=== PATIENT | male | born 2000 | race Caucasian/White ===

== ENCOUNTER 2021-05-25 17:25 | Emergency (ER) | payer OTHER ==
[~2021-05-25] VITALS: Ht 172.7 cm; Wt 83.3 kg
[2021-05-25] MEDS ORDERED: ACET325T43 PO (17:36)
[2021-05-25] MEDS ORDERED: ASPI-1 PO (17:36)
--- NOTE | 2021-05-25 18:45 | REP ---
INDICATION: CP COMPARISON: None. TECHNIQUE: PA/Lateral FINDINGS: Lungs: Clear, no infiltrate. Heart: Normal in size. Mediastinum: Mediastinal silhouette unremarkable. Pleural angles: Unremarkable.. Bones and soft tissues: Unremarkable. IMPRESSION: No acute pulmonary disease. <Electronically signed by Troy Clay > 05/25/21 [id number]
[2021-05-25 19:04] LABS: BASO % 0.4 % (0.0-1.0); EOS # 0.2 10^3/uL (0.0-0.5); EOS % 2.1 % (0.0-3.0); HEMOGLOBIN 14.3 g/dl (13.5-17.5); LYMPH # 3.8 10^3/uL (1.5-5.0); LYMPH % 39.3 % (24.0-44.0); MEAN CORPUSCULAR HEMOGLOBIN 28.9 pg (27.0-33.0); MEAN CORPUSCULAR HGB CONC 33.3 g/dl (32.0-36.5); MEAN CORPUSCULAR VOLUME 86.9 fl (80.0-96.0); MONO # 0.8 10^3/uL (0.0-0.8); MONO % 8.7 % (2.0-8.0); NEUTROPHILS # 4.8 10^3/uL (1.5-8.5); NEUTROPHILS % 49.2 % (36.0-66.0); PLATELET COUNT, AUTOMATED 302 10^3/uL (150-450); RED BLOOD COUNT 4.95 10^6/uL (4.30-6.10); WHITE BLOOD COUNT 9.7 10^3/uL (4.0-10.0)
--- OUTSIDE RECORDS SUMMARY | 2021-05-25 19:14 | CCD ---
Author Author [facility] Organization [facility] Address Unknown Phone Unavailable Care Team Providers Care Cupola Tender Helper Name Role Phone Jameson, Munger ZINC FURNACE CHARGER Unavailable Unavailable Jameson, Munger ZINC FURNACE CHARGER Unavailable Unavailable Jameson, Munger ZINC FURNACE CHARGER Unavailable Unavailable Jameson, Munger ZINC FURNACE CHARGER Unavailable Unavailable Jameson, Munger ZINC FURNACE CHARGER Unavailable Unavailable Moses MUNIZ MD Unavailable Unavailable OBMoses MENENDEZ MD Unavailable Unavailable OBMoses MENENDEZ MD Unavailable Unavailable OBMoses MENENDEZ MD Unavailable Unavailable OBMoses MENENDEZ MD Unavailable Unavailable OBMoses MENENDEZ MD Unavailable Unavailable OBMoses MENENDEZ MD Unavailable Unavailable OBMoses MENENDEZ MD Unavailable Unavailable OBMoses MENENDEZ MD Unavailable Unavailable OBMoses MENENDEZ MD Unavailable Unavailable OBMoses MENENDEZ MD Unavailable Unavailable OBMoses MENENDEZ MD Unavailable Unavailable OBMoses MENENDEZ MD Unavailable Unavailable OBMoses MENENDEZ MD Unavailable Unavailable OBMoses MENENDEZ MD Unavailable Unavailable OBMoses MENENDEZ MD Unavailable Unavailable OBMoses MENENDEZ MD Unavailable Unavailable OBMoses MENENDEZ MD Unavailable Unavailable OBMoses MENENDEZ MD Unavailable Unavailable OBMoses MENENDEZ MD Unavailable Unavailable OBMoses MENENDEZ MD Unavailable Unavailable OBMoses MENENDEZ MD Unavailable Unavailable OBMoses MENENDEZ MD Unavailable Unavailable OBGEMMA T SHAHBAZ MATTA Unavailable Unavailable OBMoses MENENDEZ MD Unavailable Unavailable OBMoses MENENDEZ MD Unavailable Unavailable OBMoses MENENDEZ MD Unavailable Unavailable OBMoses MENENDEZ MD Unavailable Unavailable OBEN T SHAHBAZ Unavailable Unavailable OBEN, T SHAHBAZ MD Unavailable Unavailable OBEN, T SHAHBAZ MD Unavailable Unavailable OBEN, T SHAHBAZ MD Unavailable Unavailable OBEN, T SHAHBAZ MD Unavailable Unavailable OBEN, T SHAHBAZ MD Unavailable Unavailable OBEN, T SHAHBAZ MD Unavailable Unavailable OBEN, T SHAHBAZ MD Unavailable Unavailable OBEN, T SHAHBAZ MD Unavailable Unavailable OBEN, T SHAHBAZ MD Unavailable Unavailable OBEN, T SHAHBAZ MD Unavailable Unavailable OBEN, T SHAHBAZ MD Unavailable Unavailable OBEN, T SHAHBAZ MD Unavailable Unavailable OBEN, T SHAHBAZ MD Unavailable Unavailable OBEN, T SHAHBAZ MD Unavailable Unavailable OBEN, T SHAHBAZ MD Unavailable Unavailable OBEN, T SHAHBAZ MD Unavailable Unavailable OBEN, T SHAHBAZ MD Unavailable Unavailable OBEN, T SHAHBAZ MD Unavailable Unavailable OBEN, T SHAHBAZ MD Unavailable Unavailable OBEN, T SHAHBAZ MD Unavailable Unavailable OBEN, T SHAHBAZ MD Unavailable Unavailable OBEN, T SHAHBAZ MD Unavailable Unavailable OBEN, T SHAHBAZ MD Unavailable Unavailable OBEN, T SHAHBAZ MD Unavailable Unavailable OBEN, T SHAHBAZ MD Unavailable Unavailable OBEN, T SHAHBAZ MD Unavailable Unavailable OBEN, T SHAHBAZ MD Unavailable Unavailable OBEN, T SHAHBAZ MD Unavailable Unavailable [facility] Unavailable Unavailable OBEN, T SHAHBAZ MD Unavailable Unavailable OBEN, T SHAHBAZ MD Unavailable Unavailable OBEN, T SHAHBAZ MD Unavailable Unavailable OBEN, T SHAHBAZ MD Unavailable Unavailable OBEN, T SHAHBAZ MD Unavailable Unavailable OBEN, T SHAHBAZ MD Unavailable Unavailable OBEN, T SHAHBAZ MD Unavailable Unavailable OBEN, T SHAHBAZ MD Unavailable Unavailable OBEN, T SHAHBAZ MD Unavailable Unavailable OBEN, T SHAHBAZ MD Unavailable Unavailable OBEN, T SHAHBAZ MD Unavailable Unavailable OBEN, T SHAHBAZ MD Unavailable Unavailable OBEN, T SHAHBAZ MD Unavailable Unavailable OBEN, T SHAHBAZ MD Unavailable Unavailable OBEN, T SHAHBAZ MD Unavailable Unavailable OBEN, T SHAHBAZ MD Unavailable Unavailable OBEN, T SHAHBAZ MD Unavailable Unavailable OBEN, T SHAHBAZ MD Unavailable Unavailable OBEN, T SHAHBAZ MD Unavailable Unavailable OBEN, T SHAHBAZ MD Unavailable Unavailable OBEN, T SHAHBAZ MD Unavailable Unavailable OBEN, T SHAHBAZ MD Unavailable Unavailable OBEN, T SHAHBAZ MD Unavailable Unavailable OBEN, T SHAHBAZ MD Unavailable Unavailable OBEN, T SHAHBAZ MD Unavailable Unavailable OBEN, T SHAHBAZ MD Unavailable Unavailable OBEN, T SHAHBAZ MD Unavailable Unavailable OBEN, T SHAHBAZ MD Unavailable Unavailable OBEN, T SHAHBAZ MD Unavailable Unavailable OBEN, T SHAHBAZ MD Unavailable Unavailable OBEN, T SHAHBAZ MD Unavailable Unavailable OBEN, T SHAHBAZ MD Unavailable Unavailable OBEN, T SHAHBAZ MD Unavailable Unavailable OBEN, T SHAHBAZ MD Unavailable Unavailable OBEN, T SHAHBAZ MD Unavailable Unavailable OBEN, T SHAHBAZ MD Unavailable Unavailable OBEN, T SHAHBAZ MD Unavailable Unavailable OBEN, T SHAHBAZ MD Unavailable Unavailable OBEN, T SHAHABZ MD Unavailable Unavailable OBEN, T SHAHBAZ MD Unavailable Unavailable OBEN, T SHAHBAZ MD Unavailable Unavailable OBEN, T SHAHBAZ MD Unavailable Unavailable OBEN, T SHAHBAZ MD Unavailable Unavailable OBEN, T SHAHBAZ MD Unavailable Unavailable OBEN, T SHAHBAZ MD Unavailable Unavailable OBEN, T SHAHBAZ MD Unavailable Unavailable OBEN, T SHAHBAZ MD Unavailable Unavailable OBEN, T SHAHBAZ MD Unavailable Unavailable OBEN, T SHAHBAZ MD Unavailable Unavailable OBEN, T SHAHBAZ MD Unavailable Unavailable OBEN, T SHAHBAZ MD Unavailable Unavailable OBEN, T SHAHBAZ MD Unavailable Unavailable OBEN, T SHAHBAZ MD Unavailable Unavailable OBEN, T SHAHBAZ MD Unavailable Unavailable OBEN, T SHAHBAZ MD Unavailable Unavailable OBEN, T SHAHBAZ MD Unavailable Unavailable OBEN, T SHAHBAZ MD Unavailable Unavailable CHANLIECCO, C KARO MD Unavailable Unavailable CHANLIECCO, C KARO MD Unavailable Unavailable CHANLIECCO, C KARO MD Unavailable Unavailable CHANLIECCO, C KARO MD Unavailable Unavailable CHANLIECCO, C KARO MD Unavailable Unavailable CHANLIECCO, C KARO MD Unavailable Unavailable CHANLIECCO, C KARO MD Unavailable Unavailable CHANLIECCO, C KARO MD Unavailable Unavailable CHANLIECCO, C KARO MD Unavailable Unavailable CHANLIECCO, C KARO MD Unavailable Unavailable CHANLIECCO, C KARO MD Unavailable Unavailable Re-disclosure Warning The records that you are about to access may contain information from federally-assisted alcohol or drug abuse programs. If such information is present, then the following federally mandated warning applies: This information has been disclosed to you from records protected by federal confidentiality rules (42 CFR part 2). The federal rules prohibit you from making any further disclosure of this information unless further disclosure is expressly permitted by the written consent of the person to whom it pertains or as otherwise permitted by 42 CFR part 2. A general authorization for the release of medical or other information is NOT sufficient for this purpose. The Federal rules restrict any use of the information to criminally investigate or prosecute any alcohol or drug abuse patient.The records that you are about to access may contain highly sensitive health information, the redisclosure of which is protected by Article 27-F of the [facility] Public Health law. If you continue you may have access to information: Regarding HIV / AIDS; Provided by facilities licensed or operated by the [facility] Office of Mental Health; or Provided by the [facility] Office for People With Developmental Disabilities. If such information is present, then the following [facility] mandated warning applies: This information has been disclosed to you from confidential records which are protected by state law. State law prohibits you from making any further disclosure of this information without the specific written consent of the person to whom it pertains, or as otherwise permitted by law. Any unauthorized further disclosure in violation of state law may result in a fine or mcfp sentence or both. A general authorization for the release of medical or other information is NOT sufficient authorization for further disc losure. Encounters Encounter Providers Location Date Indications Data Source(s ) Emergency Attender: KARO TURCIOS MDConsultant: [facility] 03/14/2021 08:15:00 AM EDT - 03/14/2021 01:45:00 PM EDT [facility] Patient discharged. Outpatient Attender: SHAHBAZ MUNIZ MD 12/18/19 10:42:00 AM EDT - 12/17/2020 10:42:00 AM EDT [facility] Outpatient Attender: SHAHBAZ MUNIZ MD Family Practice 12/17/2020 10:30:0 0 AM EDT [facility] ([facility]) Emergency Attender: KARO TURCIOS MDConsultant: [facility] 11/12/2020 07:31:00 AM EDT - 11/12/2020 09:19:00 AM EDT [facility] Patient discharged. Outpatient Attender: Faustino TUCKER 1 08/25/2019 03:39:00 PM EST - 06/25/2020 03:39:00 PM [facility] Immunizations Vaccine Date Status Description Data Source(s) COVID-19 VACCINE Pfizer 10/25/2020 12:00:00 AM EDT completed [facility] Vaccine Series Complete: NOThis Data was Submitted to [facility] Via [employer]. Medications No Information Insurance Providers Payer name Policy type / Coverage type Policy ID Covered democrat ID Covered democrat's relationship to marie Policy Marie Plan Information [facility] [employer] [id number] SP [id number] [facility] - [facility]/P [id number] 18 [id number] [facility] [place] [id number] 18 [id number] [facility] [place] [id number] 18 [id number] Problems, Conditions, and Diagnoses Code Display Name Description Problem Type Effective Dates Data Source(s) J64357 Nicotine dependence, other tobacco produ ct, uncomplicated Nicotine dependence, other tobacco product, uncomplicated Diagnosis 03/14 08:15:00 AM EDT [facility] U26402 Migraine without aura, intractable, with out status migrainosus Migraine without aura, intractable, without status migrainosus Diagnosis 03/14/2021 08:15:00 AM EDT [facility] R519 Headache, unspecified Headache, unspecified Diagnosis 03/14/2021 08:15:00 AM EDT [facility] R41801 Nicotine dependence, cigarettes, uncompl icated Nicotine dependence, cigarettes, uncomplicated Diagnosis 11/12/2020 07:31:00 AM EDT [facility] N451 Epididymitis Epididymitis Diagnosis 11/12/2020 07:31:00 A M EDT [facility] Q25052 Left testicular pain Left testicular pain Diagnosis 11/12/2020 07:31:00 AM EDT [facility] Surgeries/Procedures No Information Results ID Date Data Source [id number] 03/14/2021 08:15:00 AM EDT [facility] 1 OrderSheet [facility] Emergency Department [address] [place] [address] Phone #: ext- [phone] 03/14/2021 08:11 Patient: MATHEW NAVARRO Sex: M : 2000 Age: 20yWEIGHT:83.9 kg (S) HEIGHT:69 inches (S) BMI:27.3ALLERGIES: NoneCHIEF COMPLAINT: headacheDIAGNOSIS: MigraineLAB ORDERSOrder Description Priority Entered Acknowledged InitialedDIAGNOSTIC STUDY ORDERSOrder Description Priority Entered Acknowledged InitialedCT Head W/O Cont STAT 09:27 03/14/2021 09:41 Richar(Oxygen?(No)) Karo Turcios RN ; Reason for Study: persistent headacheMRI Brain W W/O STAT 11:40 03/14/2021 Initialed: 11:41 Karo TurciosCont Karo Turcios Cancelled: Wrong Order 11:41(Oxygen?(No)) (No) ; Karo Turcios NOTES: evaluate for possible mass Reason for Study: Asymmetrically larger left lateral ventricular system with subtle shift ofMRI Brain W/O STAT 11:42 03/14/2021 12:10 Sorbero,Cont Karo Turcios Dillon R.N.(Oxygen?(No)) (No) ; NOTES: evaluate for mass Reason for Study: Asymmetrically larger left lateral ventricular system with subtle shift ofMEDICATION/IV/DRIP/FLUID ORDERSOrder Description Priority Entered Acknowledged InitialedReglan IVPB 10 mg 09:26 03/14/2021 10:00 Terrywith Dextrose Karo Turcios RNIntravenous 50 mL ;(D5W)Imitrex 6 mg 09:26 03/14/2021 09:59 TerrySubcutaneous X1 Karo Turcios RNdose: 6 mg (NOW ;x1)NS IV 1000 mL 09:26 03/14/2021 09:59 Richar 2 OrderSheet [facility] Emergency Department [address] [place] [address] Phone #: ext- [phone] 03/14/2021 08:11 Patient: MATHEW NAVARRO Sex: M : 2000 Age: 20yBolus: : Bolus 1000 Karo Turcios RNmL (X1) ;GENERAL ORDERSOrder Description Priority Entered Acknowledged InitialedSaline Lock 09:26 03/14/2021 09:41 Karo Enciso RN ;[Electronically signed by Richar Yanez RN (19:33 03/14/2021)][Electronically signed by Karo Turcios (02:44 03/15/2021)][Electronically locked by Richar Yanez RN (19:33 03/14/2021)] Name Value Range Interpretation Code Description Data Nori rce(s) Supporting Document(s) ID Date Data Source [id number] 03/14/2021 08:15:00 AM EDT [facility] 1 Medication Reconciliation Report [facility] Emergency Department [address] [place] [address] Phone #: ext- [phone] 03/14/2021 08:11 Patient: MATHEW NAVARRO Sex: M : 2000 Age: 20yWeight: 83.9 kgHeight/Length: 69 in.BMI: 27.3ALLERGIES: NoneThe patient's Home Medications are listed below:NONE.The source(s) of the original Home Medication information:patientThe following Medications were given to the patient in the Emergency Department:Imitrex [Subcutaneous] Subcutaneous 6 mg, administered: 09:50 03/14/2021NS [IV] IV Fluids bolus 1000 mL over 1 minute(s), administered: 09:59 03/14/2021eglan [IVPB] IVPB bolus 0, then 10 mg 100 mL/hr, administered: 09:55 03/14/2021The following Medications were prescribed to the patient:Maxalt-WHOLESALE LOAN PROCESSOR 10 mg disintegrating tablet Take 1 tablet twice a day for 7 days -- as needed for migraineheadache. Dispense 14 tablet. Refills: 0. Substitution permitted.Pharmacy - [facility] - [id number] [facility] ; [place] [address]. FaxNumber: . -- BraulioKaro phillip Name Value Range Interpretation Code Description Data Nori rce(s) Supporting Document(s) ID Date Data Source [id number] 03/14/2021 08:15:00 AM EDT [facility] 1 Medication Administration Record [facility] Emergency Department [address] [place] [address] Phone #: ext- [phone] 03/14/2021 08:11 Patient: MATHEW NAVARRO Sex: M : 2000 Age: 20yWeight: 83.9 kgHeight/Length: 69 inBMI: 27.3ALLERGIES: None Date/Time Medication Administered Medication OrderedStart REGLAN [IVPB] (METOCLOPRAMIDE Reglan IVPB 10 mg with Nchtqqfe10:55 03/14/2021 HCL) Intravenous 50 mL (D5W)Richar Yanez RN Dose: 10 mg IVPB---- Rate: 100 mL/hr over 30 minute(s)Stop Dispensed: 50 mL bag10:35 03/14/2021 Site: #1 left Malcolm Yanez RNGiven IMITREX [SUBCUTANEOUS] Imitrex 6 mg Subcutaneous X109:50 03/14/2021 (SUMATRIPTAN SUCCINATE) dose: 6 mg (NOW x1)Richar Yanez RN Dose: 6 mg SubcutaneousStart NS [IV] NS IV 1000 mL Bolus: : Bolus [id number] 03/14/2021 Dose: IV Fluids mL (X1)Richar Yanez RN Bolus: 1000 mL over 1 minute(s)---- Dispensed: 1000 mL bagStop Site: #1 left AC11:18 03/14/2021Richar Yanez RN Name Value Range Interpretation Code Description Data Nori rce(s) Supporting Document(s) ID Date Data Source [id number] 03/14/2021 08:15:00 AM EDT [facility] 1 General Instructions [facility] Emergency Department [address] [place] [address] Phone #: ext- [phone] 03/14/2021 08:11 Patient: MATHEW NAVARRO Sex: M : 2000 Age: 20yAcute migraine headache without aura- refractory to treatment. No status migrainosus.INSTRUCTIONSDo not work today.(the ct scan as well as MRI of the brain did not show any lesions or bleed in your brain. take themaxalt as prescribed for your headache. follow up with your PMD in 2 days).Your Current Medications: .No home medication.Prescription Medications:Maxalt-WHOLESALE LOAN PROCESSOR 10 mg disintegrating tablet Take 1 tablet twice a day for 7 days -- as needed for migraineheadache. Dispense 14 tablet. Refills: 0. Substitution permitted.Pharmacy - [facility] [id number] [place] [address] ; [place] [address]. .Follow-up:Follow up with your healthcare provider in two days if not better. Reason for referral: evaluation. Summaryof care provided to patient via paper. Follow up with a neurologist in three. Call for an appointment.Reason for referral: evaluation. Summary of care provided to patient via paper. ADDITIONAL INFORMATIONMigraine HeadacheA migraine headache is an often severe type of headache. It's different from other types ofheadaches in that symptoms other than pain occur with the it. For instance, a classic migraineheadache means visual symptoms (or aura) such as flashes of light, blind spots or other visionchanges, warns you a headache is coming on. Nausea and vomiting, lightheadedness, sensitivity tolight or sound, and other visual disturbances are common migraine symptoms. The pain may lastfrom a few hours to several days. It's not clear why migraines occur, but certain factors called triggerscan raise the risk of having a migraine attack. A migraine may be triggered by emotional stress ordepression, or by hormone changes during the menstrual cycle. Other triggers include certain birthcontrol pills, overuse of migraine medicines, alcohol or caffeine, foods with tyramine such as agedcheese and wine, eyestrain, weather changes, missed meals, or too little or too much sleep. 2 General Instructions [facility] Emergency Department [address] [place] [address] Phone #: ext- [phone] 03/14/2021 08:11 Patient: MATHEW NAVARRO Sex: M : 2000 Age: 20yHome careFollow these tips when taking care of yourself at home: Don't drive yourself home if you were given pain medicine for your headache or are having visual symptoms. Instead, have someone else drive you home. Try to sleep when you get home. You should feel much better when you wake up. Cold can help ease migraine symptoms. Put an ice pack wrapped in a thin towel on your forehead or at the base of your skull. Put heat on the back of your neck to help ease any neck spasm. Drink only clear liquids or eat a light diet until your symptoms get better. This will help you prevent nausea and vomiting.How to prevent migrainesPay attention to what seems to trigger your headache. Try to stay away from the triggers when youcan. If you have headaches often, consider keeping a headache diary. In it, write down what youwere doing, feeling, or eating in the hours before each headache. Show this to your healthcareprovider to help find the cause of your headaches.If stress seems to be a trigger for your headaches, figure out what is causing stress in your life. Learnnew ways to handle your stress. Ideas include regular exercise, biofeedback, self-hypnosis, yoga,and meditation. Talk with your healthcare provider to find out more information about managingstress. Many books and digital media are also available on this subject.Tyramine is a substance found in many foods. It can trigger a migraine in some people. These foodscontain tyramine: Chocolate Yogurt All cheeses, but especially aged cheeses Smoked or pickled fish and meat, including fenton, caviar, bologna, pepperoni, and salami Liver Avocados Bananas Figs Raisins 3 General Instructions [facility] Department [address] [place] [address] Phone #: ext- [phone] 03/14/2021 08:11 Patient: MATHEW NAVARRO Sex: M : 2000 Age: 20y Red wineTry staying away from these foods for 1 to 2 months to see if you have fewer headaches.How to treat future headaches Take time out at the first sign of a headache, if possible. Find a quiet, dark, comfortable place to sit or lie down. Let yourself relax or sleep. Put an ice pack wrapped in a thin towel on your forehead or on the area of greatest pain. A heating pad and massage may help if you are having a muscle spasm and tightness in your neck. If you have been prescribed a medicine to stop a migraine headache, use this at the first warning sign of the headache for best results. First signs may be an aura or pain. If you have been prescribed a medicine to prevent the headaches, it's important to take the medicine as directed. Many of these medicines may take a few weeks to start preventing headaches, so it's important to not give up on them right away. If you continue to have just as many headaches after taking these medicines for a while, talk with your doctor to see if the dose needs to be changed or if a different medicine is advised. If you need to take medicine often for your migraine, talk with your healthcare provider about other ways to prevent your headaches.Follow-up careFollow up with your healthcare provider, or as advised. Talk with your provider if you have frequentheadaches. He or she can figure out a treatment plan. Ask if you can have medicine to take at homethe next time you get a bad headache. This may keep you from having to visit the emergencydepartment in the future. You may need to see a headache specialist (neurologist) if you continue tohave headaches.When to seek medical adviceCall your healthcare provider right away if any of these occur: Your head pain gets worse, or doesn't get better within 24 hours You can't keep liquids down (repeated vomiting) Pain in your sinuses, ears, or throat Fever of 100.4 F (38 C) or higher, or as directed by your healthcare provider Stiff neck 4 General Instructions [facility] Emergency Department [address] [place] [address] Phone #: ext- [phone] 03/14/2021 08:11 Patient: MATHEW NAVARRO Sex: M : 2000 Age: 20y Extreme drowsiness, confusion, or fainting Dizziness, or dizziness with spinning sensation (vertigo) Weakness or trouble feeling in an arm or leg, or on one side of your face Trouble talking or seeing [id number] [employer]. [address] [place] [address], [place] [address]. All rights reserved. This information is not intended as asubstitute for professional medical care. Always follow your healthcare professional's instructions.What Are Migraine and Tension Headaches? Although there are several types of headaches, migraineand tension headaches affect the most people. When you have a headache, it isn't your brain that'shurting. Your head aches because nerves in the bones, blood vessels, meninges, and muscles ofyour head are irritated. These irritated nerves send pain signals to the brain, which identifies whereyou hurt and how bad the pain is. Talk with your healthcare provider about a treatment plan that may help relieve pain and prevent future headaches.What causes your headache?The actual headache process is not yet understood. Only rarely are headaches a sign of a seriousmedical problem such as a tumor. Headache pain may be caused by abnormal interaction betweenthe brain and the nerves and blood vessels in the head. A previous head injury or concussion, neckpain, environmental stresses, muscle tension, anxiety, depression, fatigue, skipping meals, or certainfoods and drinks may trigger headache pain.Brain scans are rarely needed and only for certain danger sign symptoms. CT scans are associatedwith potential radiation effects and potential inaccurate false findings. 5 General Instructions [facility] Emergency Department [address] [place] [address] Phone #: ext- [phone] 03/14/2021 08:11 Patient: MATHEW NAVARRO Sex: M : 2000 Age: 20yWhat is referred pain?Headache pain can be referred pain, which is pain that has its source in one place but is felt inanother. For example, pain behind the eyes may actually be caused by tense muscles in the neckand shoulders. This means that the place that hurts may not be the part of the body that needstreatment.Is it a migraine?Migraine is a vascular headache that causes throbbing pain felt on one (most common) or both sides(less common) of the head. You may feel nauseated or vomit. This headache may also be precededor associated with changes in sight (like seeing spots or flashes of light), ability to speak, or sensation(aura). There are a wide variety of environmental and food-related triggers for migraines. The painmay last for 4 to 72 hours. Afterward, you may feel shaky for a day or so. If this is the first time youe xperience these symptoms, you should immediately seek medical attention because you could behaving a stroke.Is it a tension headache?This type of headache is usually a dull ache or a sensation of pressure on both sides of the head. Itmay be associated with pain or tension in the neck and shoulders. Depression, anxiety, and stresscan cause a tension headache. The pain may not have a definite beginning or end. It may come andgo, or seem never to go away. When to call the healthcare provider Call your healthcare provider for headaches that happen along with any of these symptoms: Sudden, severe headache that is different from your usual headache pain Headache associated with fever Sudden headache associated with stiff neck Slurred speech Recurring headache in children Ongoing numbness or muscle weakness Loss of vision Pain following a head injury Convulsions, or a change in mental awareness A headache you would call "the worst headache you've ever had" 6 General Instructions [facility] Emergency Department [address] [place] [address] Phone #: ext- [phone] 03/14/2021 08:11 Patient: MATHEW NAVARRO Sex: M : 2000 Age: 20y New headaches in a woman [id number] [employer]. [address] [place] [address]. All rights reserved. This information is not intended as asubstitute for professional medical care. Always follow your healthcare professional's instructions. You have been given the following additional information: Headache, Migraine, Classic What Are Migraine and Tension Headaches? Do not work today.(Electronically signed by Karo Turcios 03/15/2021 02:44) Name Value Range Interpretation Code Description Data Nori rce(s) Supporting Document(s) ID Date Data Source [id number] 03/14/2021 08:15:00 AM EDT [facility] 1 Clinical Report - Nurses [facility] [address] [place] [address] Phone #: ext- [phone] 03/14/2021 08:11 Patient: MATHEW NAVARRO Sex: M : 2000 Age: 20yTRIAGEArrived by private vehicle. Historian: patient. Accompanied by friend. ( presents with c/o headache for aweek, states hes tried tylenol and motrin with no relief, also nausea, dizzy, blurred vision and fatigue, wentto sick call and told to come here).Triage time: 09:19 03/14/2021. Acuity: LEVEL 3.Chief Complaint: HEADACHE.Alert. No acute distress.This started 1 weeks.Treatment HEAVY COIL WINDER:None.SEPSIS SCREEN: SIRS SCREEN NEGATIVE. SEPSIS SCREEN NEGATIVE. No suspected or confirmedsigns of infection present. --09:03/14/21 Yanci Torre RN09:03/14/21. BP: 151/81. MAP: 104. HR: 59. RR: 16. O2 saturation: 100%. Temp: 97.3 F. Pain levelnow: 410. --09:03/14/21 Yanci Torre, JUVENTINO.Weight: 83.9 kg stated. Height/Length: 69 inches Per Patient. BMI: 27.3. --09:03/14/21 Yanci Torre RN.MedicationsNone. --09:03/14/21 Yanci Torre, JUVENTINO.AllergiesNone. --09:03/14/21 Yanci Torre, JUVENTINO.PROBLEMS:Epididymitis. --09:03/14/21 Yanci Torre RN.Medication/allergy information source: the patient and patient's previous visit record. --09:03/14/21Yanci Torre RN.ADDITIONAL SURGERIES:no known surgeries.HistoryPAST MEDICAL HX: Immunizations: (covid vaccine). 2 Clinical Report - Nurses [facility] Emergency Department [address] [place] [address] Phone #: ext- [phone] 03/14/2021 08:11 Patient: MATHEW NAVARRO Sex: M : 2000 Age: 20y SOCIAL HX: Smoker- current status unknown (vapes). Occasional alcohol use. No drug use. No recent travel. No known contact with a sick individual. He was offered HIV testing but declined and hepatitis C testing but declined. He has not traveled outside the [place] Infectious disease exposure: No infectious disease exposure. SELF HARM ASSESSMENT: Self harm assessment was performed. The patient answered "no" to the question(s) "Have you recently felt down, depressed, or hopeless?". ABUSE ASSESSMENT: No report of abuse. NUTRITIONAL RISK ASSESSMENT: The nutritional risk assessment revealed no deficiencies. FUNCTIONAL ASSESSMENT: Functional assessment: no impairments noted. LEARNING NEEDS ASSESSMENT: The learning needs assessment revealed no barriers. FALL RISK ASSESSMENT: Fall risk assessment completed. No risk factors identified. SKIN INTEGRITY ASSESSMENT: Skin integrity risk assessment completed. No skin integrity risk identified. --09:03/14/21 Yanci Torre RN.PHYSICAL ASSESSMENTAmbulatory to room.GENERAL / NEURO / PSYCH: Alert. Oriented X 4. Appears in no acute distress.HEENT: No facial asymmetry noted. Pupils equal, round and reactive to light.RESPIRATORY: Respirations not labored.CVS: Capillary refill less than 2 seconds.GI / : The patient has had nausea. Abdomen soft and nontender.SKIN: Skin is warm and dry. --09:24 03/14/21 Yanci Torre RN.NURSING PROGRESS NOTESPatient gowned. Reassurance given. Two patient identifiers checked. Bed placed in lowest position.Brakes of bed on. Patient ready for evaluation. --09:24 03/14/21 Yanci Torre RN 09:50 03/14/2021 Site #1 started via IV in the left antecubital space with an 20g angiocath; one attempt. Saline lock flushed with 10 mL saline. --09:58 03/14/21 Richar Yanez RN 09:50 03/14/2021 Imitrex (S UMAtriptan Succinate) Subcutaneous 6 mg given Given in the left upper arm. Allergies verified and confirmed 5 rights. Information reviewed with patient. --09:59 03/14/21 Richar Yanez RN 09:55 03/14/2021 Started 10 mg of Reglan (Metoclopramide HCl) IVPB in bag #1 50 mL; at 100 mL/hr over 30 minute(s) via site #1. via IV pump. Allergies verified and confirmed 5 rights. IV patency established. IV site checked: no pain, redness, or swelling. IV flushed thoroughly pre- and post-medication administration. 3 Clinical Report - Nurses [facility] Department [address] [place] [address] Phone #: ext- [phone] 03/14/2021 08:11 --- Patient: MATHEW NAVARRO Sex: M : 2000 Age: 20y Information reviewed with patient. --10:00 03/14/21 Richar Yanez RN 09:59 03/14/2021 Started bag #1 1000 mL IV Fluids NS; bolus of 1000 mL over 1 minute(s) via site #1 via IV pump. Allergies verified and confirmed 5 rights. IV patency established. IV site checked: no pain, redness, or swelling. IV flushed thoroughly pre- and post-medication administration. Information reviewed with patient. --09:59 03/14/21 Richar Yanez RN Patient transported to [place] by wheelchair with mask and radiology services manager. (1010). --10:07 03/14/21 Richar Yanez RN 10:19 03/14/2021 Imitrex Subcutaneous Response: pain is improving. Symptoms have improved the patient feels better. --12:19 03/14/21 Richar Yanez RN 10:35 03/14/2021 Reglan IVPB via IV site #1 Discontinued: bag #1 infused. Total amount infused: 50 mL. IV patency established. IV site checked: no pain, redness, or swelling. IV flushed thoroughly. --12:18 03/14/21 Richar Yanez RN 11:18 03/14/2021 IV Fluids NS via IV site #1 Discontinued: bag #1 infused. Total amount infused: 1000 mL. IV patency established. IV site checked: no pain, redness, or swelling. IV flushed thoroughly. --12:18 03/14/21 Richar Yanez RN Patient returned from CT by wheelchair with mask and radiology services manager. (1020). --12:40 03/14/21 Richar Yanez RN ( 1130 pt stating headache better, pt moved to hallway 3 to open up room 5 for another pt). --12:41 03/14/21 Richar Yanez RN Patient transported to MRI by wheelchair with mask and radiology services manager. (1250). Patient returned from MRI by wheelchair with mask. (1315). Not transported from radiology services manager. --13:22 03/14/21 Richar Yanez RN 10:00 03/14/21. BP: 141/86. MAP: 104. HR: 54. O2 saturation: 99% on room air. --13:29 03/14/21 Richar Yanez RN 11:04 03/14/21. BP: 137/73. MAP: 94. HR: 56. O2 saturation: 99%. --13:30 03/14/21 Richar Yanez RN.DISPOSITION / DISCHARGE 13:40 03/14/21. BP: deferred. HR: 64. RR: 16. O2 saturation: 98% on room air. Temp: 98.4 F (temporal). Pain level now: 10/06. --14:06 03/14/21 Richar Yanez RN 13:41 03/14/2021 Site #1 removed upon discharge. Catheter intact. Bandaid applied. --14:06 03/14/21 Richar Yanez RN 13:45 03/14/21. Departure time: 13:45 03/14/2021. Condition at departure: improved. No learning barriers present. 4 Cl inical Report - Nurses [facility] [address] [place] [address] Phone #: ext- [phone] 03/14/2021 08:11 Patient: MATHEW NAVARRO Sex: M : 2000 Age: 20y Discharge instructions provided and reviewed with the patient. Reviewed medication(s) side effects, precautions, dosing and course information. Prescription(s) sent electronically to pharmacy. Reviewed referrals. Provided to follow-up provider. Patient verbalized understanding. Written instructions provided in Algerian. The patient was discharged by the physician. He was discharged home. He left ambulatory and via private vehicle. Patient driving. --14:06 03/14/21 Richar Yanez RN.Locked/Released at 03/14/2021 19:33 by Richar Yanez RN Name Value Range Interpretation Code Description Data Nori rce(s) Supporting Document(s) ID Date Data Source [id number] 03/14/2021 08:15:00 AM EDT [facility] 1 Clinical Report - Physicians/Mid Levels [facility] Department [address] [place] [address] Phone #: ext- [phone] 03/14/2021 08:11 Patient: MATHEW NAVARRO Sex: M : 2000 Age: 20y Time Seen: 09:11 03/14/2021; initial patient contact, initial documentation. Arrived- By private vehicle. Historian- patient. Disposition decision: 13:34 03/14/2021.HISTORY OF PRESENT ILLNESS Chief Complaint: HEADACHE. Is still present but is better now. (persistent). Onset during moderate exertion. This started 1 week ago. It was gradual in onset and has been intermittent. It is described as tightness and pressure. No neck pain. Not located in the facial region. Located in the occipital region. At its maximum, severity described as 10 / 10. When seen in the E.D., severity described as 4 / 10. Modifying factors: worsened by physical exertion; relieved by quiet room. The patient has had photophobia and nausea. No preceding symptoms, blurred vision, numbness or vomiting. No recent travel.REVIEW OF SYSTEMSNo fever, muscle aches, sinus pressure, ear pain or sore throat. No chest pain, difficulty breathing,abdominal pain, diarrhea or pain with urination. No skin rash, enlarged lymph nodes or back pain. Allother systems reviewed and are negative.PAST HISTORYSee nurses notes. Problems: Epididymitis. Additional Surgeries: no known surgeries. Medications: None. Allergies: None.SOCIAL HISTORYSmoker- current status unknown (vapes). Occasional alcohol use. No drug use.ADDITIONAL NOTESThe nursing notes have been reviewed. 2 Clinical Report - Physicians/Mid Levels [facility] Department [address] [place] [address] Phone #: kst- [phone] 03/14/2021 08:11 Patient: MATHEW NAVARRO Sex: M : 2000 Age: 20yPHYSICAL EXAMVital Signs: 03/14/2021 09:19 BP: 151/81. MAP: 104. HR: 59. RR: 16. O2 saturation: 100%. Temp: 97.3F. Pain level now: 4/10. Have been reviewed. Oxygen saturation normal.Appearance: Alert. No acute distress.Eyes: Pupils equal, round and reactive to light. Eyes normal inspection. No photophobia.ENT: Pharynx normal.Neck: Normal inspection. Neck supple. No meningeal signs, carotid bruit or lymphadenopathy.CVS: Normal heart rate and rhythm. Heart sounds normal. Pulses normal.Respiratory: No respiratory distress. Painless inspiration. Breath sounds normal.Abdomen: Soft and nontender. No organomegaly.Back: Normal inspection. No CVA tenderness.Skin: Skin warm and dry. Normal skin color. No rash. Normal skin turgor.Extremities: Extremities exhibit normal ROM. No lower extremity edema.Neuro: Oriented X 3. Alert. Mood/affect normal. Speech normal. Cranial nerves normal (as tested).No cerebellar findings. No abnormal finger-nose test. No motor deficit. No sensory deficit. Reflexesnormal. No abnormal Romberg test. Normal gait.LABS, X-RAYS, AND EKGMRI Brain: Note- FINDINGS: BRAIN PARENCHYMA: [There is no acute parenchymal hemorrhage, mass, mass-effect, or midline shift.] [Clay and white matter signal is within normal limits.] VENTRICLES/SULCI: Mild asymmetry of the ventricles left larger than right as noted on earlier CT. No mass or obstructing lesion is identified. This is likely normal variation for this patient. Small cavum of septum pellucidum normal variant is also noted. Normal sulcal pattern. VASCULAR: [There is no evidence of restricted diffusion to suggest acute infarction. No old infarcts are noted. Normal intracranial arterial flow-voids are present.] EXTRAAXIAL/DURA: [No extraaxial mass or significant dural abnormality. No pituitary mass. No cerebellopontine angle mass.] SKULL BASE/CALVARIUM: Unremarkable orbits. Minimal ethmoid mucosal thickening. No sinus fluid levels. Normal mastoid aeration. IMPRESSION: No acute abnormality. No abnormal white matter signal correlate with migraine history or other demyelinating process. Ventricular asymmetry considered to represent normal variation. Mild ethmoid mucosal thickening without fluid levels may represent chronic sinusitis. Study type: The study was interpreted by the radiologist. Laboratory Tests: CT Head W/O Cont: (YEVGENIY: 03/14/2021 09:27) ( MsgRcvd 03/14/2021 10:55) In Progress CT HEAD W/O CONTRAST 3 Clinical Report - Physicians/Mid Levels [facility] Department [address] [place] [address] Phone #: ext- [phone] 03/14/2021 08:11 Patient: MATHEW NAVARRO Sex: M : 2000 Age: 20yReason(s): persistent headacheTRANSPORTATION: WC IV? O2? Oxygen?(No) Room: ED Exam CT HEAD [place] [address] PHONE: [phone] FAX: [phone] Name .................. : MELANIE Lopes Acct Number.................. : [id number] ROOM. ................. : [place] MR Number ................... : [id number] Stay type ............. : E/R Discharge Date......... ... : Admit Date ......... : 03/14/21 Admit Phys .................... : [facility] Date of ....... : 2000 Family Phys ................... : UNKNOWN Phone .................. : [phone] Age ................................ : 20 Film# .................. .:[id number] Sex ................................. : M Unsigned transcriptions are preliminary reports and do not represent a medical or legal document CT HEAD W/O CONTRAST [id number] COMPLETE:03/14/21 10:48 DIMPLE [id number] Reason(s): persistent headache CT BRAIN WITHOUT IV CONTRAST INDICATION: Persistent headache COMPARISON: None CONTRAST: None One or more of the following dose reduction techniques were utilized in effectively lowering the radiation dose for this examination: Automated Exposure Control, Adjustment of the mA and/or kV according to patient size, or Iterative Reconstruction. FINDINGS: Slightly asymmetric lateral ventricular size left greater than right and subtle midline shift. No underlying mass is identified as an etiology for displacement. No indication of foramen of Monro obstructing lesion. Clay-white differentiation intact. No extra-axial collection or intracranial hemorrhage. No indication of acute or prior ischemic CVA. Calvarium and skull base are within normal limits. To the extent included sinuses are clear. IMPRESSION: Asymmetrically larger left lateral ventricular system with subtle shift of midline positioning. No underlying mass is identified. This might represent congenital variation for this patient. When clinically appropriate consider MR to assess for any underlying abnormality which may be occult on CT. Page 1 of 2 [place] [address] PHONE: [phone] FAX: [phone] 4 Clinical Report - Physicians/Mid Levels [facility] Department [address] [place] [address] Phone #: ext- [phone] 03/14/2021 08:11 Patient: MATHEW NAVARRO Sex: M : 2000 Age: 20y Name .................. : MELANIE Lopes Acct Number.................. : [id number] ROOM. ................. : VT-02 MR Number ................... : [id number] Stay type ............. : E/R Discharge Date......... ... : Admit Date ......... : 03/14/21 Admit Phys ....... ............. : VIRGEN Date of ....... : 2000 Family Phys ................... : UNKNOWN Phone .................. : [phone] Age ................................ : 20 Film# .................. .:[id number] Sex ................................. : M Unsigned transcriptions are preliminary reports and do not represent a medical or legal document CT HEAD W/O CONTRAST [id number] COMPLETE:03/14/21 10:48 DIMPLE [id number] Reason(s): persistent headache Electronically Reviewed and Signed By DCTNAME , SIGNDATE, SCB Transcribe Initials: NESHA, Transcribe Date: 03/14/21 10:55, Dictation Date: <<REPDIST>> Page 2 of 2.PROGRESS AND PROCEDURESCourse of Care: 10:25 03/14/21. Patient given Imitrex and reglan for his headahce. 11:39 03/14/21. CT head read as Asymmetrically larger left lateral ventricular system with subtle shift of midline positioning. No underlying mass is identified. This might represent congenital variation for this patient. When clinically appropriate consider MR to assess for any underlying abnormality which may be occult on CT. will send [facility] for an MRI 13:32 03/14/21. MRI read as normal variant.no mass. he has chronic sinusitis. will discharge home home. his headache is down from 4 to 2. will discharge the patient home and advised follow up with his doctor or galindo molina doctor. Patient counseled in person regarding the patient's stable condition, test results, diagnosis and need for follow-up. Patient agrees with plan of care. 13:34. Disposition: Discharged home in good and improved condition (13:34). Condition: good and stable. Discharge decision based on the following: patient's condition is improved; patient is ambulatory; patient's pain is controlled; patient's exam is improved; minimally abnormal test results; stable condition on repeat evaluation; social support is adequate; transportation is available; follow-up is available; clinical impression 5 Clinical Report - Physicians/Mid Levels [facility] Department [address] [place] [address] Phone #: ext- [phone] 03/14/2021 08:11 Patient: MATHEW NAVARRO Sex: M : 2000 Age: 20y is consistent with outpatient treatment.CLINICAL IMPRESSION Acute migraine headache without aura- refractory to treatment. No status migrainosus.INSTRUCTIONS Do not work today. (the ct scan as well as MRI of the brain did not show any lesions or bleed in your brain. take the maxalt as prescribed for your headache. follow up with your PMD in 2 days). Your Current Medications: . No home medication. Prescription Medications: Maxalt-[employer] 10 mg disintegrating tablet Take 1 tablet twice a day for 7 days -- as needed for migraine headache. Dispense 14 tablet. Refills: 0. Substitution permitted. Pharmacy - [id number] - [id number] ; [place] [address]. . Follow-up: Follow up with your healthcare provider in two days if not better. Reason for referral: evaluation. Summary of care provided to patient via paper. Follow up with a neurologist in three. Call for an appointment. Reason for referral: evaluation. Summary of care provided to patient via paper.(Electronically signed by Karo Turcios 03/15/2021 02:44) Name Value Range Interpretation Code Description Data Nori rce(s) Supporting Document(s) ID Date Data Source [id number] 03/14/2021 10:52:00 PM EDT [facility] [address] [place] [address] PHONE: [phone] FAX: [phone] Name .................. : MELANIE Lopes Acct Number.................. : [id number] ROOM. ................. : VT-02 MR Number ................... : [id number] Stay type ............. : E/R Discharge Date......... ... : Admit Date ......... : 03/14/21 Admit Phys .................... : VIRGEN Date of ....... : 2000 Family Phys ................... : UNKNOWN Phone .................. : [phone] Age ................................ : 20 Film# .................. .:[id number] Sex ................................. : M Unsigned transcriptions are preliminary reports and do not represent a medical or legal document MRI BRAIN W/O CONTRAST [id number] COMPLETE:03/14/21 11:42 [id number] Reason(s): Asymmetrically larger left lateral ventricular system with subtl MRI BRAIN WITHOUT IV CONTRAST INDICATION: Migraines COMPARISON: Correlation with earlier same day CT head CONTRAST: None TECHNIQUE: MRI of the brain was performed in multiple planes with multiple MRI sequences. FINDINGS: BRAIN PARENCHYMA: There is no acute parenchymal hemorrhage, mass, mass-effect, or midline shift. Clay and white matter signal is within normal limits. VENTRICLES/SULCI: Mild asymmetry of the ventricles left larger than right as noted on earlier CT. No mass or obstructing lesion is identified. This is likely normal variation for this patient. Small cavum of septum pellucidum normal variant is also noted. Normal sulcal pattern. VASCULAR: There is no evidence of restricted diffusion to suggest acute infarction. No old infarcts are noted. Normal intracranial arterial flow-voids are present. EXTRAAXIAL/DURA: No extraaxial mass or significant dural abnormality. No pituitary mass. No cerebellopontine angle mass. SKULL BASE/CALVARIUM: Unremarkable orbits. Minimal ethmoid mucosal thickening. No sinus fluid levels. Normal mastoid aeration. Page 1 of 2 [place] [address] PHONE: [phone] FAX: [phone] Name .................. : [id number] ROOM. ................. : [place]- 02 Number ................... : [id number] Stay type ............. : E/R Discharge Date......... ... : Admit Date ......... : 03/14/21 Admit Phys .................... : VIRGEN Date of ....... : 2000 Family Phys ................... : UNKNOWN Phone .................. : [phone] Age ................................ : 20 Film# .................. .:[id number] Sex ..................... ............ : M Unsigned transcriptions are preliminary reports and do not represent a medical or legal document MRI BRAIN W/O CONTRAST [id number] COMPLETE:03/14/21 11:42 [id number] Reason(s): Asymmetrically larger left lateral ventricular system with subtl IMPRESSION: No acute abnormality. No abnormal white matter signal to correspond with migraine history or other demyelinating process. Ventricular asymmetry considered to represent normal variation. Mild ethmoid mucosal thickening without fluid levels may represent chronic sinusitis. Electronically Reviewed and Signed By Goran So MD , 03/14/21 22:52, NEB Transcribe Initials: SSR, Transcribe Date: 03/14/21 13:42, Dictation Date: Copy for: EMERGENCY DEPT via modem Copy for: 710 MED REC DISCHARGED Page 2 of 2 Name Value Range Interpretation Code Description Data Nori rce(s) Supporting Document(s) ID Date Data Source [id number] 03/14/2021 10:49:00 [place] [address] PHONE: [phone] FAX: [phone] Name .................. : MAURISIOFERMÍN DODSONIN [facility] Acct Number.................. : [id number] ROOM. ................. : VT- MR Number ................... : [id number] Stay type ............. : E/R Discharge Date......... ... : Admit Date ......... : 02/27 01/17 Admit Phys .................... : VIRGEN Date of ....... : 2000 Family Phys ................... : UNKNOWN Phone .................. : [phone] Age ................................ : 20 Film# .................. .:[id number] Sex ................................. : M Unsigned transcriptions are preliminary reports and do not represent a medical or legal document CT HEAD W/O CONTRAST [id number] COMPLETE:03/14/21 10:48 DIMPLE [id number] Reason(s): persistent headache CT BRAIN WITHOUT IV CONTRAST INDICATION: Persistent headache COMPARISON: None CONTRAST: None One or more of the following dose reduction techniques were utilized in effectively lowering the radiation dose for this examination: Automated Exposure Control, Adjustment of the mA and/or kV according to patient size, or Iterative Reconstruction. FINDINGS: Slightly asymmetric lateral ventricular size left greater than right and subtle midline shift. No underlying mass is identified as an etiology for displacement. No indication of foramen of Monro obstructing lesion. Clay-white differentiation intact. No extra-axial collection or intracranial hemorrhage. No indication of acute or prior ischemic CVA. Calvarium and skull base are within normal limits. To the extent included sinuses are clear. IMPRESSION: Asymmetrically larger left lateral ventricular system with subtle shift of midline positioning. No underlying mass is identified. This might represent congenital variation for this patient. When clinically appropriate consider MR to assess for any underlying abnormality which may be occult on CT. Page 1 of [address] [place] [address] PHONE: [phone] FAX: [phone] Name .................. : MELANIE Lopes Acct Number.................. : [id number] ROOM. ................. : [place] MR Number ................... : [id number] Stay type ............. : E/R Discharge Date......... ... : Admit Date ......... : 03/14/21 Admit Phys .................... : [facility] Date of ....... : 2000 Family Phys ................... : UNKNOWN Phone .................. : [phone] Age ................................ : 20 Film# .................. .:[id number] Sex ................................. : M Unsigned transcriptions are preliminary reports and do not represent a medical or legal document CT HEAD W/O CONTRAST [id number] COMPLETE:03/14/21 10:48 DIMPLE [id number] Reason(s): persistent headache Electronically Reviewed and Signed By Goran So MD , 03/14/21 22:49, [facility] Transcribe Initials: SSR, Transcribe Date: 03/14/21 10:55, Dictation Date: Copy for: EMERGENCY DEPT via modem Copy for: 710 MED REC DISCHARGED Page 2 of 2 Name Value Range Interpretation Code Description Data Nori rce(s) Supporting Document(s) ID Date Data Source [id number] 12/17/2020 09:02:00 AM EDT [facility] ([facility]) Name Value Range Interpretation Code Description Data Nori rce(s) Supporting Document(s) Color of Urine Laboratory test result [facility] ([facility]) Appearance of Urine Laboratory test result [facility] ([facility]) Spec [place] 1.005 1.001-1.030 [facility] ([facility]) pH of Urine by Test strip 8 5-9 MEDE NT ([facility]) Leukocytes Laboratory test result [facility] ([facility]) Nitrate [Presence] in Urine Laboratory test result [facility] ([facility]) Protein [Presence] in Urine by Test strip Laboratory test result [facility] ([facility]) Inhouse Glucose Laboratory test result [facility] ([facility]) Ketones [Presence] in Urine by Test strip Laboratory test result [facility] ([facility]) Urobilinogen Laboratory test result [facility] ([facility]) Bilirubin.total [Presence] in Urine by Test strip Laboratory test res ult [facility] ([facility]) Blood type and Indirect antibody screen panel - Blood Laboratory test result [facility] ([facility]) ID Date Data Source [id number] 11/15/2020 11:28:00 AM EDT [facility] [address] [place] [address] PHONE: [phone] FAX: [phone] Name .................. : BRUCEVANDANA MATHEW Lopes Acct Number.................. : [id number] ROOM. ................. : [place]-01 Number ................... : [id number] Stay type ............. : E/R Discharge Date......... ... : 11/12/20 Admit Date ......... : 11/12/20 Admit Phys .................... : VIRGEN Date of ....... : 2000 Family Phys ................... : UNKNOWN Phone .................. : [phone] Age ................................ : 20 Film# .................. .:[id number] Sex ................................. : M Unsigned transcriptions are preliminary reports and do not represent a medical or legal document SCROTAL [id number] COMPLETE:11/12/20 08:42 KNB 8917 Reason(s): pain on the left testicle SCROTAL ULTRASOUND: FINDINGS: The right testicle measures 4.9 x 2.5 x 3.1 cm. The left testicle measures 5.1 x 2.5 x 2.3 cm. There is an echogenic focus identified within the left testicle with some shadowing behind it that measures 2.3 x 1.6 mm and is consistent with an area of calcification. There is normal flow to the right and left testicles. No other significant findings otherwise noted. IMPRESSION: Area of calcification in the testicle. No other significant findings otherwise identified. Electronically Reviewed and S igned By JEFF ARORA MD , 11/15/20 11:28, [facility] Transcribe Initials: PADMINI , Transcribe Date: 11/12/20 15:59, Dictation Date: Copy for: EMERGENCY DEPT via [facility] Copy for: 710 MED REC DISCHARGED Page 1 of 1 Name Value Range Interpretation Code Description Data Nori rce(s) Supporting Document(s) ID Date Data Source [id number] 11/12/2020 07:31:00 AM EDT [facility] 1 OrderSheet [facility] Emergency Department [address] [place] [address] Phone #: [phone] tjg- [phone] 11/12/2020 07:27 Patient: MATHEW NAVARRO Sex: M : 2000 Age: 20yWEIGHT:90.4 kg (M) HEIGHT:69 inches (S) BMI:29.5ALLERGIES: NoneCHIEF COMPLAINT: testicular pain:, LtDIAGNOSIS: EpididymitisLAB ORDERSOrder Description Priority Entered Acknowledged InitialedCBC w Diff STAT 07:39 11/12/2020 07:48 Augustina Johnson Victoria R.N. ;CMP STAT 07:39 11/12/2020 07:48 Augustina Johnson Victoria R.N. ;P T/INR STAT 07:39 11/12/2020 07:48 Augustina Johnson Victoria R.N. ;Urinalysis (Clean STAT 07:39 11/12/2020 08:30 Maria Isabel,Catch) Karo TurciosNAndres ;Chlamydia/GC STAT 08:54 11/12/2020 08:54 Maria Isabel, Madeline NicolasNAndres; Madeline RAndresNAndres Verbal order per; Karo TurciosDIAGNOSTIC STUDY ORDERSOrder Description Priority Entered Acknowledged InitialedUS Scrotal STAT 07:39 11/12/2020 08:02 Maria Isabel,(Oxygen?(No)) Karo Turcios R.N. ; Reason for Study: pain on the left testicleMEDICATION/IV/DRIP/FLUID ORDERSOrder Description Priority Entered Acknowledged InitialedRocephin IM 250 08:58 11/12/2020 09:06 Augustina Johnsonmg (NOW) Karo Turcios R.N. ;Zithromax Liquid 08:58 11/12/2020 Cancelled: Physician Order 09:06 Alex,PO 1000 mg (NOW) Karo Turcios R.N. 2 OrderSheet [facility] Emergency Department [address] [place] [address] Phone #: ext- [phone] 11/12/2020 07:27 Patient: MATHEW NAVARRO Sex: M : 2000 Age: 20y ;Zithromax PO 1000 09:07 11/12/2020 09:07 Augustina Johnsonmg (NOW x1) Augustina Johnson R.N.; R.NAndres Verbal order per; Karo TurciosGENERAL ORDERSOrder Description Priority Entered Acknowledged Initialed[Electronically signed by Madeline Nicolas R.N. (09:11/12/2020)][Electronically signed by Karo Turcios (10:00 11/12/2020)][Electronically locked by Madeline Nicolas R.N. (:11/12/2020)] Name Value Range Interpretation Code Description Data Nori rce(s) Supporting Document(s) ID Date Data Source [id number] 11/12/2020 07:31:00 AM EDT [facility] 1 Medication Reconciliation Report [facility] Emergency Department [address] [place] [address] Phone #: ext- [phone] 11/12/2020 07:27 Patient: MATHEW NAVARRO Sex: M : 2000 Age: 20yWeight: 90.4 kgHeight/Length: 69 in.BMI: 29.5ALLERGIES: NoneThe patient's Home Medications are listed below:NONE.The source(s) of the original Home Medication information:Not obtained.The following Medications were given to the patient in the Emergency Department:Rocephin [IM] IM 250 mg, administered: 09:11/12/2020Zithromax [PO] PO 1000 mg, administered: 09:11/12/2020The following Medications were prescribed to the patient:levofloxacin 500 mg tablet Take 1 tablet once a day for 10 days -- Dispense 10 tablet. Refills: 0.Substitution permitted.Pharmacy - [facility] [address] ; [place] [address]. FaxNumber: . -- Karo Turcios Name Value Range Interpretation Code Description Data Nori rce(s) Supporting Document(s) ID Date Data Source [id number] 11/12/2020 07:31:00 AM EDT [facility] 1 Medication Administration Record [facility] Emergency Department [address] [place] [address] Phone #: ext- [phone] 11/12/2020 07:27 Patient: MATHEW NAVARRO Sex: M : 2000 Age: 20yWeight: 90.4 kgHeight/Length: 69 inBMI: 29.5ALLERGIES: None Date/Time Medication Administered Medication OrderedGiven ROCEPHIN [IM] (CEFTRIAXONE Rocephin IM 250 mg (NOW)09:11/12/2020 SODIUM)Augustina Johnson R.N. Dose: 250 mg IMGiven ZITHROMAX [PO] (AZITHROMYCIN) Zithromax PO 1000 mg (NOW x1)09:11/12/2020 Dose: 1000 mg Tablets Augustina Webber R.N. Name Value Range Interpretation Code Description Data Nori rce(s) Supporting Document(s) ID Date Data Source [id number] 11/12/2020 07:31:00 AM EDT [facility] 1 General Instructions [facility] Emergency Department [address] [place] [address] Phone #: ext- [phone] 11/12/2020 07:27 Patient: MATHEW NAVARRO Sex: M : 2000 Age: 20yLeft epididymitisINSTRUCTIONSDo not work for four.(blood work as well as urinalysis were normal. you are being treated for possible epididymitis. elevateyour scrotum as much as possible wear jock strap. take motrin for pain and the levaquin as prescribed.follow up with a urologist nest week. US did not show mass or torsion).Your Current Medications: .No home medication.Prescription Medications:levofloxacin 500 mg tablet Take 1 tablet once a day for 10 days -- Dispense 10 tablet. Refills: 0.Substitution permitted.Pharmacy - [facility] - [address] [facility] ; [place] [address]. .Follow-up:Follow up with your healthcare provider Sunday. Reason for referral: evaluation. Summary of careprovided to patient via paper. Follow up with a urologist- as recommended by your health care provider-Sunday. Reason for referral: evaluation.Follow-up with: Shahbaz Muniz M.D., Urology, , [address] [place] [address], [id number] Follow up Sunday. Call for the next available appointment. Reason for referral: evaluation. Summaryof care provided to patient via paper. ADDITIONAL INFORMATIONEpididymitisInflammation of the epididymis can cause pain and swelling in your scrotum. The epididymis is asmall tube next to the testicle that stores sperm. Epididymitis is often caused by an infection. Insexually active men, it is often caused by a sexually transmitted infection (STI) such as chlamydia orgonorrhea. In boys and in men over 40, it can be from bacteria from other parts of the urinary tract(not an STI infection). 2 General Instructions [facility] Emergency Department [address] [place] [address] Phone #: ext- [phone] 11/12/2020 07:27 Patient: MATHEW NAVARRO Sex: M : 2000 Age: 20ySymptoms may begin with pain in the lower belly (abdomen) or low back. The pain then spreadsdown into the scrotum. Often only one side is affected. The testicle and scrotum swell and becomevery painful and red. You may have fever and a burning when passing urine. Sometimes you mayhave a discharge from the penis.Treatment is with antibiotics, and anti-inflammatory and pain medicines. The condition should getbetter over the first few days of treatment. But it will take several weeks for all the swelling and mildpain to go away. If your healthcare provider thinks that an STI is the cause, your sexual partners mayneed to be treated.Home careHere are some tips to help you care for yourself at home: Support the scrotum. When lying down, place a rolled towel under the scrotum. When walking, use an athletic supporter or 2 pairs of jockey-style underwear. To ease pain, put ice packs on the inflamed area. To make an ice pack, put ice cubes in a plastic bag that seals at the top. Wrap the bag in a clean, thin towel. Never put an ice pack directly on the skin. Take pain medicine as directed. You may use [id number]-rghfkjp medicines to control pain, unless another medicine was given. If you have long-term (chronic) liver or kidney disease, talk with your healthcare provider before taking these medicines. Also talk with your provider if you've ever had a stomach ulcer or GI (gastrointestinal) bleeding. Get some rest. Rest in bed for the first few days until the fever, pain, and swelling get better. It may take several weeks for all of the swelling to go away. Prevent constipation. Constipation can make you strain. This makes the pain worse. Prevent constipation by eating natural laxatives. These include prunes, fresh fruits, and whole-grain cereals. If needed, use a mild gxbe-zkf-stpxmxv laxative for constipation. Mineral oil can be used to keep the stools soft. Wait to have sex. Don't have sex until you have finished all treatment and all symptoms have cleared. Take all medicine as directed. Don't miss any doses. And don't stop taking your medicine early, even if you feel better.Follow-up careFollow up with your healthcare provider, or as advised, to be sure you are responding correctly totreatment. If a culture was taken, you may call for the result as directed. A culture test can ensure thatyou are on the correct antibiotic. 3 General Instructions [facility] Emergency Department [address] [place] [address] Phone #: ext- [phone] 11/12/2020 07:27 Patient: MATHEW NAVARRO Sex: M : 2000 Age: 20yWhen to seek medical adviceCall your healthcare provider right away if any of these occur: Fever of 100.4F (38C) or higher, or as directed by your provider More pain or swelling of the testicle after starting treatment Pressure or pain in your bladder that gets worse Unable to pass urine for 8 hours [id number] The [employer]. [address] [place] [address]. All rights reserved. This information is not intended as asubstitute for professional medical care. Always follow your healthcare professional's instructions. You have been given the following additional information: Epididymitis Do not work for four.(Electronically signed by Karo Turcios 11/12/2020 10:00) Name Value Range Interpretation Code Description Data Nori rce(s) Supporting Document(s) ID Date Data Source [id number] 11/12/2020 07:31:00 AM EDT [facility] 1 Clinical Report - Nurses [facility] Emergency Department [address] [place] [address] Phone #: ext- [phone] 11/12/2020 07:27 Patient: MATHEW NAVARRO Sex: M : 2000 Age: 20yTRIAGEArrived by private vehicle. Historian: patient. Accompanied by friend.Acuity: LEVEL 3.Chief Complaint: TESTICULAR PAIN and (left sided).Alert.Onset. (2 days ago).Treatment HEAVY COIL WINDER:None.SEPSIS SCREEN: SIRS SCREEN NEGATIVE. SEPSIS SCREEN NEGATIVE. No suspected or confirmedsigns of infection present. --07:31 11/12/20 Augustina Johnson R.N.07:28 11/12/20. BP: 129/73. MAP: 91. HR: 61. RR: 18. O2 saturation: 96% on room air. Temp: 98.5 F.Pain level now: 12/06. --07:31 11/12/20 Augustina Johnson R.N.Weight: 90.4 kg measured. Height/Length: 69 inches Per Patient. BMI: 29.5. --07:27 11/12/20 Augustina Johnson R.N.MedicationsNone. --07:29 11/12/20 Augustina Johnson R.N.AllergiesNone. --07:29 11/12/20 Augustina Johnson R.N.PROBLEMS:no known problems.ADDITIONAL SURGERIES:no known surgeries.HistoryPAST MEDICAL HX: Immunizations: up-to-date.SOCIAL HX: Light tobacco smoker- less than 1/2 a pack per day. Occasional alcohol use. No drug use.He was offered HIV testing but declined and hepatitis C testing but declined. He has not traveled outs[place]Infectious disease exposure: No infectious disease exposure. Patient is not a known carrier of tuberculosis,hepatitis, HIV, MRSA or VRE. Patient is not a known carrier of CRE. 2 Clinical Report - Nurses [facility] Emergency Department [address] [place] [address] Phone #: ext- [phone] 11/12/2020 07:27 -- Patient: MATHEW NAVARRO Sex: M : 2000 Age: 20y SELF HARM ASSESSMENT: Self harm assessment was performed. The patient answered "no" to the question(s) "Have you recently felt down, depressed, or hopeless?", "Do you have thoughts of harming or killing yourself?", "Do you have a plan for harming or killing yourself?", "Have you recently had thoughts about harming or killing others?", "Do you have any dangerous items in your possession?", "Have you noticed less interest or pleasure in doing things?", "Are you here because you tried to hurt yourself?" and "Have you ever tried to hurt yourself before today?". ABUSE ASSESSMENT: Abuse assessment. Abuse denied. No suspicion of abuse. No report of abuse. NUTRITIONAL RISK ASSESSMENT: The nutritional risk assessment revealed no deficiencies. FUNCTIONAL ASSESSMENT: Functional assessment: no impairments noted. LEARNING NEEDS ASSESSMENT: The learning needs assessment revealed no barriers. FALL RISK ASSESSMENT: Fall risk assessment completed. No risk factors identified. SKIN INTEGRITY ASSESSMENT: Skin integrity risk assessment completed. No skin integrity risk identified. --11/12/20 Augustina Johnson R.N. Interventions Identification band on patient. To treatment room. --11/12/20 Alex, Augustina, R.N.PHYSICAL ASSESSMENTAmbulatory to room. Patient gowned.GENERAL / NEURO / PSYCH: Alert. Oriented X 4. Appears in pain.HEENT: Mucous membranes are pink.RESPIRATORY: Respirations not labored.CVS: Normal heart rate and rhythm. Capillary refill less than 2 seconds.GI / : No decreased urination. Abdomen soft and nontender. Bowel sounds within normal limits andlimits. Left-sided scrotal swelling. Left testicular tenderness. Testes not descended. No pain withurination. No hematuria.SKIN: Skin is warm and dry. --07:55 11/12/20 Madeline Nicoals R.N.NURSING PROGRESS NOTESPatient gowned. Reassurance given. Two patient identifiers checked. Call light placed in reach. Siderails up x 2. Bed placed in lowest position. Brakes of bed on. Patient ready for evaluation. --07: Augustina Johnson R.N. Patient transported by wheelchair with mask and radiology services manager. (Ultrasound). --08:03 11/12/20 Madeline Nicolas R.N. 08:14 11/12/20. Patient returned by wheelchair with mask and radiology services manager. (Ultrasound). --08:17 3 Clinical Report - Nurses [facility] Emergency Department [address] [place] [address] Phone #: ext- [phone] 11/12/2020 07:27 Patient: MATHEW NAVARRO Sex: M : 2000 Age: 20y 11/12/20 Madeline Nicolas R.N. The patient is calm and resting quietly. Overall patient status is the same- he states feels the same. --08:18 11/12/20 Madeline Nicolas R.N. 08:47 11/12/20. BP: 139/74. MAP: 95. HR: 71. RR: 16. O2 saturation: 99%. Temp: 97.4 F. --08:47 11/12/20 Madeline Nicolas R.N. 09:06 11/12/2020 Rocephin (cefTRIAXone Sodium) IM 250 mg given. Given in the right deltoid. Allergies verified and confirmed 5 rights. Information reviewed with patient including reason for taking this medication, signs of allergic reaction and precautions. Verbalizes understanding. --09:06 11/12/20 Augustina Johnson R.N. 09:07 11/12/2020 Zithromax (Azithromycin) PO Tablets 1000 mg given. Allergies verified and confirmed 5 rights. Information reviewed with patient including reason for taking this medication, signs of allergic reaction and precautions. Verbalizes understanding. --09:07 11/12/20 Augustina Johnson R.N.DISPOSITION / DISCHARGE No learning barriers present. Discharge instructions provided and reviewed with the patient. Reviewed medication(s). Prescription(s) sent electronically to pharmacy. Reviewed referral to a urologist. Work note given (x 3 days). Patient verbalized understanding. Written instructions provided in Algerian. --09:18 11/12/20 Madeline Nicolas R.N. Departure time: 09:18 11/12/2020. --09:18 11/12/20 Madeline Nicolas R.N. 09:18 11/12/20. BP: 139/74. MAP: 95. HR: 71. RR: 71. O2 saturation: 99%. Temp: 97.4 F. Pain level now: 10/06. --09:19 11/12/20 Mdaeline Nicolas R.N.Locked/Released at 11/12/2020 09:19 by Madeline Nicolas R.N. Name Value Range Interpretation Code Description Data Nori rce(s) Supporting Document(s) ID Date Data Source [id number] 11/12/2020 07:31:00 AM EDT [facility] 1 Clinical Report - Physicians/Mid Levels [facility] Emergency Department [address] [place] [address] Phone #: ext- [phone] 11/12/2020 07:27 Patient: MATHEW NAVARRO Sex: M : 2000 Age: 20y Time Seen: 07:33 11/12/2020; initial patient contact, initial documentation. Arrived- By private vehicle. Historian- patient. Disposition decision: 09:06 11/12/2020.HISTORY OF PRESENT ILLNESS Chief Complaint: LEFT TESTICULAR PAIN. This started 2 days ago and is still present. The problem is described as moderate. It was gradual in onset and has been constant. No penile discharge, discomfort with urination, urinary frequency, genital lesion or urgency of urination. No flank pain, inguinal swelling or problem with the foreskin. He has had moderate testicular pain, involving the left testicle. No swelling or redness. Able to void. Not voiding only small amounts. The patient has had no unprotected intercourse or not had an exposure to a sexually transmitted disease. Sexual history is noncontributory. (Patient states that he started having pain on the left testicle 2 days ago. denies any injury. he states that he lifts a lot of heavy objects denies pain on urination, no abdominal pain, no flank pain).REVIEW OF SYSTEMSNo fever, chills, flank p ain, hematuria or abdominal pain. No vomiting, diarrhea, black stools, bloodystools or headache. No sore throat, blurred vision, chest pain, difficulty breathing or cough. No joint pain,skin rash or back pain. All other systems reviewed and are negative.PAST HISTORYSee nurses notes. No history of sexually transmitted disease. Has not had UTI. Problems: no known problems. Additional Surgeries: no known surgeries. Medications: None. Allergies: None.SOCIAL HISTORYCurrent every day light tobacco smoker (cigarette)- less than 1/2 a pack per day. Occasional alcohol use.No drug use.ADDITIONAL NOTESThe nursing notes have been reviewed.PHYSICAL EXAM 2 Clinical Report - Physicians/Mid Levels [facility] Emergency Department [address] [place] [address] Phone #: ext- [phone] 11/12/2020 07:27 [id number] Sex[facility] M : 2000 Age: 20y Vital Signs: 11/12/2020 07:28 BP: 129/73. MAP: 91. HR: 61. RR: 18. O2 saturation: 96% on room air. Temp: 98.5 F. Pain level now: 5/10. Oxygen saturation normal. Appearance: Alert. Oriented X3. No acute distress. ENT: Normal external inspection. Neck: Neck supple. CVS: Heart sounds normal. Respiratory: No respiratory distress. Painless inspiration. Breath sounds normal. Abdomen: Soft and nontender. Bowel sounds normal. No organomegaly. No mass. Back: Normal external inspection. No CVA tenderness. : Testes descended. No urethral discharge, genital lesion, phimosis, paraphimosis or tenderness pre sent. No hernia mass, scrotal mass or swelling or inguinal lymphadenopathy. (circumcised penis. positive tenderness on palpation on the left testicle. pain on the posterior aspect, there is full;ness on the left scrotum compared to the left. no testicular mass. good cremasteric reflex.). Skin: Skin warm and dry. Normal skin color. No rash. Normal skin turgor. Extremities: Extremities exhibit normal ROM. No lower extremity edema. Neuro: Oriented X 3.LABS, X-RAYS, AND EKGScrotal Sonogram: No mass, varicocele or hydrocele. Jefe mayberry Kirwin - 11/12/2020 8:29:11 [facility] The study was interpreted by the radiologist.Laboratory Tests: CBC w Diff: (YEVGENIY: 11/12/2020 07:45) ( MsgRcvd 11/12/2020 08:04) Final results Test Result Flag Units (Reference) CBC W/AUTOMATED DIFF COMPLETE BLOOD COUNT WBC 8.7 10/uL (4.2 - 11.0) RBC 5.15 10/uL (4.50 - 6.30) HEMOGLOBIN 15.4 g/dL (14.0 - 16.0) HEMATOCRIT 45.8 % (41.0 - 51.0) MCV 88.9 fL (80.0 - 94.0) MCH 29.9 pg (27.0 - 34.0) MCHC 33.6 g/dL (31.0 - 36.0) RDW 12.5 % (11.5 - 14.8) PLATELETS 271 10/uL (150 - 450) MPV 9.3 fL (7.4 - 10.4) NEUT 60.1 % (37.0 - 80.0) LYMPH 26.9 % (25.0 - 40.0) MONO 8.9 H % (3.0 - 8.0) EOS 3.2 % (0.0 - 7.0) BASO 0.6 % (0.0 - 2.0) %IG 0.3 H % (0.0 - 0.0) %NRBC 0.0 % (0.0 - 0.0) #NEUT 5.25 10/uL (2.00 - 6.90) #LYMPH 2.35 10/uL (0.60 - 3.40) #MONO 0.78 10/uL (0.00 - 0.90) #EOS 0.28 10/uL (0.00 - 0.70) #BASO 0.05 10/uL (0.00 - 0.20) #IG 0.03 10/uL (0.00 - 0.10) #NRBC 0.00 10/uL (0.00 - 0.00) MANUAL DIFF NOT INDICATED RBC MORPH NOT INDICATED 3 Clinical Report - Physicians/Mid Levels [facility] Emergency Department [address] [place] [address] Phone #: ext- [phone] 11/12/2020 07:27 Patient: MATHEW NAVARRO Sex: M : 2000 Age: 20yCMP: (YEVGENIY: 11/12/2020 07:45) ( MsgRcvd 11/12/2020 08:21) Final results Test Result Flag Units (Reference) COMPREHENSIVE METABOLIC PANEL COMPREHENSIVE METABOLIC PANEL SODIUM 137 mEq/L (134 - 153) POTASSIUM 4.1 mEq/L (3.6 - 5.0) CHLORIDE 102 mEq/L (98 - 107) CO2 26 MEQ/L (22 - 30) GLUCOSE 89 MG/DL (70 - 99) BUN 14 MG/DL (7 - 21) CREATININE 0.9 MG/DL (0.7 - 1.5) BUN/CREAT 16 (8 - 27) TOTAL PROTEIN 7.3 G/DL (6.3 - 8.2) ALBUMIN 4.4 G/DL (3.9 - 5.0) GLOBULIN 2.9 GM/DL (2.4 - 3.2) A/G RATIO 1.5 (0.8 - 2.0) CALCIUM 9.4 MG/DL (8.4 - 10.2) TOTAL BILI <0.7 MG/DL (0.2 - 1.3) ALKALINE PHOS 32 L U/L (38 - 126) SGOT/AST 17 U/L (5 - 40) SGPT/ALT 13 U/L (7 - 56) ANION GAP 9.0 mmol/L (8.0 - 16.0) AGE 20 yrs NON-AA GFR >60 mL/min AFR AMER GFR >60 mL/min Male GFR Interprentation 20-49 yrs >60 mL/min Lbcdhp62-99 yrs >56 mL/min Normal 60-69 yrs >49 mL/min Normal 70-79yrs>42 mL/min Normal 80 and above >35 mL/min Normal Female GFRInterpretation 20-39 yrs >60 mL/min Normal 40-49 yrs >58 mL/minNormal 50-59 yrs >51 mL/min Normal 60-69 yrs >45 mL/min Lwsbmi03-82 yrs >39 mL/min Normal 80 and above >32 mL/min NormalPT/INR: (YEVGENIY: 11/12/2020 07:45) ( MsgRcvd 11/12/2020 08:12) Final results Test Result Flag Units (Reference) PROTIME 13.4 SECONDS (11.0 - 15.5) INR 0.97 (0.93 - 1.23) \\BLDo\\INR INTERPRETATION\\BLDx\\ Therapeutic range for Coumadin andrelated oral anticoagulants. - International Normalized Ratio (INR): 2.0 - 3.0 for VenousThrombosis, Pulmonary Embolus, Tissue heart valves, Acute MN, Atrial Fibrillation, Valvular heartdisease and recurrent Systemic Embolism. - International Normalized Ratio (INR): 2.5 - 3.5for Mechanical Prosthetic valve.Urinalysis: (YEVGENIY: 11/12/2020 08:25) ( [facility] [place] 11/12/2020 08:42) Final results Test Result Flag Units (Reference) URINALYSIS URINALYSIS SOURCE R COLOR yellow (NORMAL: Yello CLARITY clear (NORMAL: Clear SPEC GRAVITY 1.010 (1.001 - 1.030 pH 6 (5 - 9) GLUCOSE NORM (NORMAL: Negat BILIRUBIN NEG (NORMAL: Negat KETONE NEG (NORMAL: Negat 4 Clinical Report - Physicians/Mid [facility] Emergency Department [address] [place] [address] Phone #: ext- [phone] 11/12/2020 07:27 Patient: MATHEW NAVARRO Sex: M : 2000 Age: 20y PROTEIN NEG (NORMAL: Negat NITRITE NEG (NORMAL: Negat BLOOD NEG (NORMAL: Negat LEUK EST NEG (NORMAL: Negat UROBILINOGEN NOR (less than 1.0 MICROSCOPIC Not Indicate US Scrotal: (YEVGENIY: 11/12/2020 07:39) ( [facility] 11/12/2020 08:42) In Progress US SCROTAL Reason(s): pain on the left testicle TRANSPORTATION: IV? O2? Oxygen?(No) Room: ED.PROGRESS AND PROCEDURESCourse of Care: 08:47 11/12/20. blood work as well as urinalysis were normal. US was read as NAD Adarsh Mayberry but he states that he ruled out mass and torsion. he cannot rule out epididymitis. he is tenderon the posterior aspect of the left scrotum. will treat with rocephin and Zithromax for possibleepipidymitis and discharge home with levaquin 500 mg daily x 10 days. will advise scrotal support aswell as scrotal elevation and follow up with ur ology 09:59 11/12/20. discharge V/s signs placed incorrectly. RR is 17 not 71/min. Daughter counseled in person regarding the patient's stable condition, test results, diagnosis and need for follow-up. Daughter agrees with plan of care. 09:07. Disposition: Discharged home in good condition (09:06). Condition: good and stable. Discharge decision based on the following: patient's condition is stable; patient's exam is stable; no abnormal test results; stable condition on multiple repeat evaluations; social support is adequate; transportation is available; follow-up is available; clinical impression is consistent with outpatient treatment.CLINICAL IMPRESSION Left epididymitisINSTRUCTIONS Do not work for four. (blood work as well as urinalysis were normal. you are being treated for possible epididymitis. elevate your scrotum as much as possible wear jock strap. take motrin for pain and the levaquin as prescribed. follow up with a urologist nest week. US did not show mass or torsion). Your Current Medications: . No home medication. 5 Clinical Report - Physicians/Mid Levels [facility] Emergency Department [address] [place] [address] Phone #: ext- [phone] 11/12/2020 07:27 Patient: MATHEW NAVARRO Sex: M : 2000 Age: 20y Prescription Medications: levofloxacin 500 mg tablet Take 1 tablet once a day for 10 days -- Dispense 10 tablet. Refills: 0. Substitution permitted. Pharmacy - [facility] - [id number] [facility] ; [place] [address]. . Follow-up: Follow up with your healthcare provider Sunday. Reason for referral: evaluation. Summary of care provided to patient via paper. Follow up with a urologist- as recommended by your health care provider- Sunday. Reason for referral: evaluation. Follow-up with: Shahbaz Muniz M.D., Urology, , [address] [place] [address], [phone] Follow up Sunday. Call for the next available appointment. Reason for referral: evaluation. Summary of care provided to patient via paper.(Electronically signed by Karo Turcios 11/12/2020 10:00) Name Value Range Interpretation Code Description Data Nori rce(s) Supporting Document(s) ID Date Data Source [id number] 11/12/2020 07:31:[address] [facility] for MATHEW NAVARRO VisitID: [id number] Date: 9:59vital sign for respiratory rate were inputted incorrectly as 71 they should of been 17(Electronically signed by Augustina Johnson R.N. - 11/12/2020 9:59) Name Value Range Interpretation Code Description Data Nori rce(s) Supporting Document(s) ID Date Data Source [id number] 11/14/2020 07:12:00 AM EDT [facility] Name Value Range Interpretation Code Description Data Nori rce(s) Supporting Document(s) Chlamydia trachomatis rRNA [Presence] in Unspecified specimen by Probe and target amplification method Negative Negative [facility] Neisseria gonorrhoeae rRNA [Presence] in Unspecified specimen by Probe and target amplification method Negative Negative [facility] ID Date Data Source [id number] 11/12/2020 08:41:00 AM EDT [facility] Name Value Range Interpretation Code Description Data Nori rce(s) Supporting Document(s) URINALYSIS [facility] URINALYSIS SOURCE R [facility] COLOR yellow NORMAL: Yellow [facility] CLARITY clear NORMAL: Clear [facility] spital Specific gravity of Urine by Test strip 1.010 1.001 - 1.030 [facility] pH 6 5 - 9 [facility] Glucose [Mass/volume] in Urine by Test strip NORM NORMAL: Negat [facility] Bilirubin.total [Presence] in Urine by Test strip NEG NORMAL: Negative [facility] Ketones [Presence] in Urine by Test strip NEG NORMAL: Negative [facility] Protein [Mass/volume] in Urine by Test strip NEG NORMAL: Negat [facility] Nitrite [Presence] in Urine by Test strip NEG NORMAL: Negative [facility] BLOOD NEG NORMAL: Negative [facility] Leukocyte esterase [Presence] in Urine by Test strip NEG BERNY L: Negative [facility] Urobilinogen [Mass/volume] in Urine by Test strip NOR less briseida n 1.0 mg/dL [facility] MICROSCOPIC Not Indicate [facility] ID Date Data Source [id number] 11/12/2020 08:21:00 AM EDT [facility] Name Value Range Interpretation Code Description Data Nori rce(s) Supporting Document(s) COMPREHENSIVE METABOLIC PANEL [facility] COMPREHENSIVE METABOLIC PANEL Sodium [Moles/volume] in Serum or Plasma 137 mEq/L 134 - 153 [facility] Potassium [Moles/volume] in Serum or Plasma 4.1 mEq/L 3.6 - 5.0 [facility] Chloride [Moles/volume] in Serum or Plasma 102 mEq/L 98 - 107 [facility] Carbon dioxide, total [Moles/volume] in Serum or Plasma 26 MEQ/L 22 - 30 [facility] Glucose [Mass/volume] in Serum or Plasma 89 MG/DL 70 - 99 [facility] BUN 14 MG/DL 7 - 21 [facility] Creatinine [Mass/volume] in Serum or Plasma 0.9 MG/DL 0.7 - 1.5 [facility] BUN/CREAT 16 8 - 27 [facility] al Protein [Mass/volume] in Serum or Plasma 7.3 G/DL 6.3 - 8.2 [facility] Albumin [Mass/volume] in Serum or Plasma 4.4 G/DL 3.9 - 5.0 [facility] Globulin [Mass/volume] in Serum by calculation 2.9 GM/DL 2.4 - 3.2 [facility] A/G RATIO 1.5 0.8 - 2.0 [facility] Calcium [Mass/volume] in Serum or Plasma 9.4 MG/DL 8.4 - 10.2 [facility] Bilirubin.total [Mass/volume] in Serum or Plasma <0.7 MG/DL 0.2 - 1.3 [facility] Alkaline phosphatase [Enzymatic activity/volume] in Serum or Plasma 32 U/L 38 - 126 L [facility] Aspartate aminotransferase [Enzymatic activity/volume] in Serum or Plasma 17 U/L 5 - 40 [facility] Alanine aminotransferase [Enzymatic activity/volume] in Seru m or Plasma 13 U/L 7 - 56 [facility] Anion gap 3 in Serum or Plasma 9.0 mmol/L 8.0 - 16.0 [facility] AGE 20 yrs [facility] al NON-AA GFR >60 mL/min [facility] ital AFR AMER GFR >60 mL/min [facility] Male GFR In terprentation 20-49 yrs >60 mL/min Normal 50-59 yrs >56 mL/min Normal 60-69 yrs >49 mL/min Normal 70-79yrs >42 mL/min Normal 80 and above >35 mL/min Normal Female GFR Interpretation 20-39 yrs >60 mL/min Normal 40-49 yrs >58 mL/min Normal 50-59 yrs >51 mL/min Normal 60-69 yrs >45 mL/min Normal 70-79 yrs >39 mL/min Normal 80 and above >32 mL/min Normal ID Date Data Source [id number] 11/12/2020 08:12:00 AM EDT [facility] Name Value Range Interpretation Code Description Data Nori rce(s) Supporting Document(s) Prothrombin time (PT) 13.4 SECONDS 11.0 - 15.5 [facility] INR in Platelet poor plasma by Coagulation assay 0.97 0.93 - 1. 23 [facility] \\BLDo\\INR INTERPRETATION\\BLDx\\ Therapeutic range for Coumadin and related oral anticoagulants. - International Normalized Ratio (INR): 2.0 - 3.0 for Venous Thrombosis, Pulmonary Embolus, Tissue heart valves, Acute MN, Atrial Fibrillation, Valvular heart disease and recurrent Systemic Embolism. -International Normalized Ratio (INR): 2.5 - 3.5 for Mechanical Prosthetic valve. ID Date Data Source [id number] 11/12/2020 08:04:00 AM EDT [facility] Name Value Range Interpretation Code Description Data Nori rce(s) Supporting Document(s) CBC W/AUTOMATED DIFF [facility] COMPLETE BLOOD COUNT Leukocytes [#/volume] in Blood by Automated count 8.7 10^3/uL 4.2 - 1 1.0 [facility] Erythrocytes [#/volume] in Blood by Automated count 5.15 10^6/uL 4. 50 - 6.30 [facility] Hemoglobin [Mass/volume] in Blood 15.4 g/dL 14.0 - 16.0 [facility] Hematocrit [Volume Fraction] of Blood by Automated count 45.8 % 4 1.0 - 51.0 [facility] Erythrocyte mean corpuscular volume [Entitic volume] by Auto mated count 88.9 fL 80.0 - 94.0 [facility] Erythrocyte mean corpuscular hemoglobin [Entitic mass] by Automated count 29.9 pg 27.0 - 34.0 [facility] Erythrocyte mean corpuscular hemoglobin concentration [Mass/volume] by Automated count 33.6 g/dL 31.0 - 36.0 [facility] Erythrocyte distribution width [Ratio] by Automated count 12.5 % 11.5 - 14.8 [facility] Platelets [#/volume] in Blood by Automated count 271 10^3/uL 150 - 45 0 [facility] Platelet mean volume [Entitic volume] in Blood by Automated count 9.3 fL 7.4 - 10.4 [facility] Neutrophils/100 leukocytes in Blood by Automated count 60.1 % 37. 0 - 80.0 [facility] Lymphocytes/100 leukocytes in Blood by Manual count 26.9 % 25.0 - 40.0 [facility] Monocytes/100 leukocytes in Blood by Automated count 8.9 % 3.0 - 8.0 H [facility] Eosinophils/100 leukocytes in Blood by Automated count 3.2 % 0.0 - 7.0 [facility] Basophils/100 leukocytes in Blood by Automated count 0.6 % 0.0 - 2.0 [facility] %IG 0.3 % 0.0 - 0.0 H [facility] %NRBC 0.0 % 0.0 - 0.0 [facility] al Neutrophils [#/volume] in Blood by Automated count 5.25 10^3/uL 2.00 - 6.90 [facility] Lymphocytes [#/volume] in Blood by Automated count 2.35 10^3/uL 0.60 - 3.40 [facility] Monocytes [#/volume] in Blood by Automated count 0.78 10^3/uL 0.00 - 0.90 [facility] Eosinophils [#/volume] in Blood by Automated count 0.28 10^3/uL 0.00 - 0.70 [facility] Basophils [#/volume] in Blood by Automated count 0.05 10^3/uL 0.00 - 0.20 [facility] #IG 0.03 10^3/uL 0.00 - 0.10 [facility] ospital #NRBC 0.00 10^3/uL 0.00 - 0.00 [facility] MANUAL DIFF NOT INDICATED [facility] RBC MORPH NOT INDICATED [facility] ID Date Data Source [id number] 06/25/2020 03:49:00 PM EST [facility] Name Value Range Interpretation Code Description Data Nori e(s) Supporting Document(s) SARS coronavirus 2 RNA [facility] This lab was ordered by [facility] and reported by [facility]. ID Date Data Source [id number] 06/27/2020 06:16:00 PM EST [facility] Name Value Range Interpretation Code Description Data Nori rce(s) Supporting Document(s) SARS-CoV-2, BEST Not Detected Not Detected [facility] This nucleic acid amplification test was developed and its performancecharacteristics determined by [facility]. Nucleic acidamplification tests include PCR and TMA. This test has not been FDAcleared or approved. This test has been authorized by FDA under anEmergency Use Authorization (EUA). This test is only authorized forthe duration of time the declaration that circumstances existjustifying the authorization of the emergency use of in vitrodiagnostic tests for detection of SARS-CoV-2 virus and/or diagnosisof COVID-19 infection under section 564(b)(1) of the Act, 21 U.S.C.360bbb-3(b) (1), unless the authorization is terminated or revokedsooner.When diagnostic testing is negative, the possibility of a falsenegative result should be considered in the context of a patient'srecent exposures and the presence of clinical signs and symptomsconsistent with COVID- 19. An individual without symptoms of COVID-19and who is not shedding SARS-CoV-2 virus would expect to have anegative (not detected) result in this assay. Procedure Social History No Information Vital Signs ID Date Data Source UNK Name Value Range Interpretation Code Description Data Source(s) Systolic blood pressure 127 mm[Hg] 127 mm[Hg] M EDENT ([facility]) Diastolic blood pressure 79 mm[Hg] 79 mm[Hg] MEDENT ([facility]) Heart rate 74 /min 74 /min [facility] ([facility]) Oxygen saturation in Arterial blood by Pulse oximetry 97 % 97 % [facility] ([facility]) Body weight 185.00 [lb_av] 185.00 [lb_av] MEDEN T ([facility]) Body weight 83.916 kg 83.916 kg [facility] ([facility]) Body height 69 [in_i] 69 [in_i] [facility] ([facility]) 5'9" Body mass index (BMI) [Ratio] 27.3 kg/m2 27.3 k g/m2 [facility] ([facility]) Body surface area Derived from formula 2.00 m2 2.00 m2 [facility] ([facility]) Heart rate 107 /min 107 /min [facility] ([facility]) Body temperature 98.7 [degF] 98.7 [degF] [facility] ([facility]) Oxygen saturation in Arterial blood by Pulse oximetry 98 % 98 % [facility] ([facility])
[2021-05-25] MEDS ORDERED: NS 1,000 ML IV ONE (19:25)
[2021-05-25] MEDS ORDERED: KETOROLAC 30 MG/ML 1ML VIAL IV ONE (19:25)
[2021-05-25 19:33] LABS: BLOOD UREA NITROGEN 14 MG/DL (7-18); CALCIUM LEVEL 9.4 MG/DL (8.5-10.1); CARBON DIOXIDE LEVEL 26 MEQ/L (21-32); CHLORIDE LEVEL 109 MEQ/L (98-107); CREATININE FOR GFR 1.16 MG/DL (0.70-1.30); GLOMERULAR FILTRATION RATE > 60.0 (>60); GLUCOSE, FASTING 84 MG/DL (70-100); MAGNESIUM LEVEL 2.2 MG/DL (1.8-2.4); POTASSIUM SERUM 3.8 MEQ/L (3.5-5.1); SODIUM LEVEL 142 MEQ/L (136-145)
[2021-05-25 19:50] LABS: CK-MB VALUE MASS < 1.0 NG/ML (<3.6); CPK CREATINE PHOSPHOKINASE 142 U/L (39-308); TROPONIN I < 0.02 NG/ML (< 0.10)
[2021-05-25] MEDS ORDERED: NAPR-837 PO (22:13)
[2021-05-25 22:22] VITALS: BP 127/76
--- NOTE | 2021-05-26 20:11 | ECGEPIP ---
[facility] - ED Test Date: 2021-05-25 Pat Name: MATHEW NAVARRO Department: Room: - Gender: Male [employer]: JAVIER : 2000 Requested By: MATTY VILLASENOR PA-C. Order Number: [id number] Reading MD: Lynda Mott Measurements Intervals [place] Rate: 62 P: 57 MI: 154 QRS: 71 QRSD: 90 T: 25 QT: 392 QTc: 397 Interpretive Statements Sinus bradycardia with occasional and consecutive premature ventricular complexes No prior clinical correlation Electronically Signed on 05-26-2021 20:11:16 EDT by Lynda Mott
== END 2021-05-25 22:23 | disposition home or self-care (01) ==
LOC: M ED 17:25
DX: R07.89 Other chest pain (principal); R00.1 Bradycardia, unspecified; F17.200 Nicotine dependence, unspecified, uncomplicated; Z79.82 Long term (current) use of aspirin
CPT/HCPCS: 36415; 71046; 80048; 82550; 82553; 83735; 84484; 85025; 85379; 93005; 96361; 96374; 99284; J1885

== ENCOUNTER 2021-06-22 23:40 | Emergency (ER) | payer OTHER ==
[~2021-06-22] VITALS: Ht 172.7 cm; Wt 83.6 kg
[~2021-06-22 23:40] MED LIST: ACET325T43 PO; ASPI-1 PO; NAPR-837 PO
[2021-06-23 00:57] LABS: HEMOGLOBIN 15.7 g/dl (13.5-17.5); MEAN CORPUSCULAR HEMOGLOBIN 29.3 pg (27.0-33.0); MEAN CORPUSCULAR HGB CONC 33.4 g/dl (32.0-36.5); MEAN CORPUSCULAR VOLUME 87.7 fl (80.0-96.0); PLATELET COUNT, AUTOMATED 311 10^3/uL (150-450); RED BLOOD COUNT 5.36 10^6/uL (4.30-6.10)
[2021-06-23 01:18] LABS: AMPHETAMINES LEVEL URINE NEGATIVE (NEGATIVE); BARBITURATES URINE NEGATIVE (NEGATIVE); BENZODIAZEPINES URINE NEGATIVE (NEGATIVE); CANNABINOIDS URINE NEGATIVE (NEGATIVE); COCAINE METABOLITE URINE NEGATIVE (NEGATIVE); METHADONE URINE NEGATIVE (NEGATIVE); OPIATES URINE NEGATIVE (NEGATIVE); PHENCYCLIDINE URINE NEGATIVE (NEGATIVE)
[2021-06-23 01:34] LABS: ACETAMINOPHEN LEVEL < 2.0 UG/ML (10.0-30.0); ALBUMIN 4.4 GM/DL (3.2-5.2); ALT/SGPT 27 U/L (12-78); BILIRUBIN,DIRECT 0.1 MG/DL (0.0-0.2); BILIRUBIN,TOTAL 0.3 MG/DL (0.2-1.0); BLOOD UREA NITROGEN 11 MG/DL (7-18); CALCIUM LEVEL 9.2 MG/DL (8.5-10.1); CARBON DIOXIDE LEVEL 27 MEQ/L (21-32); CHLORIDE LEVEL 109 MEQ/L (98-107); CREATININE FOR GFR 1.02 MG/DL (0.70-1.30); ETHYL ALCOHOL (ETHANOL) 0.165 % (0.000-0.010); GLOMERULAR FILTRATION RATE > 60.0 (>60); GLUCOSE, FASTING 100 MG/DL (70-100); POTASSIUM SERUM 4.4 MEQ/L (3.5-5.1); SALICYLATE LEVEL < 1.7 MG/DL (5.0-30.0); SODIUM LEVEL 142 MEQ/L (136-145); TOTAL PROTEIN 8.5 GM/DL (6.4-8.2)
--- OUTSIDE RECORDS SUMMARY | 2021-06-23 02:13 | CCD ---
Author Author [facility] Organization [facility] Address Unknown Phone Unavailable Care Team Providers Care Fiber Locking Supervisor Name Role Phone Jameson, [place] MARKET DEVELOPMENT MANAGER Unavailable Unavailable Jameson, [place] MARKET DEVELOPMENT MANAGER Unavailable Unavailable Jameson, [place] MARKET DEVELOPMENT MANAGER Unavailable Unavailable Jameson, [place] MARKET DEVELOPMENT MANAGER Unavailable Unavailable Jameson, [place] MARKET DEVELOPMENT MANAGER Unavailable Unavailable Moses MUNIZ MD Unavailable Unavailable [...] MENENDEZ MD Unavailable Unavailable OBEN T SHAHBAZ MD Unavailable Unavailable OBEN, T [...] Unavailable OBEN, T SHAHBAZ MD Unavailable Unavailable B[facility]THEWOOD, [facility] Unavailable Unavailable OBEN, T SHAHBAZ MD [...] is protected by Article 27-F of the [facility] Public Health law. If you continue you may have access to information: Regarding HIV / AIDS; Provided by facilities licensed or operated by the [facility] Office of Mental Health; or Provided by the [facility] Office for People With Developmental Disabilities. If such information is present, then the following [facility] mandated warning applies: This information has [...] law may result in a fine or retirement sentence or both. A general authorization for the release of medical or other information is NOT sufficient authorization for further disc losure. Encounters Encounter Providers Location Date Indications Data Source(s ) Emergency Attender: KARO TURCIOS MDConsultant: CLIN IC RAMEY 03/14/2021 08:15:00 AM EDT - 03/14/2021 01:45:00 PM EDT [facility] Patient discharged. Outpatient Attender: SHAHBAZ MUNIZ MD 12/18/19 10:42:00 AM EDT - 12/17/2020 10:42:00 AM EDT [facility] Outpatient Attender: SHAHBAZ MUNIZ MD Family Practice 12/17/2020 10:30:0 0 AM EDT [facility] ([facility]) Emergency Attender: KARO TURCIOS MDConsultant: CLIN IC RAMEY 11/12/2020 07:31:00 AM EDT - 11/12/2020 09:19:00 AM EDT [facility] Patient discharged. Outpatient Attender: Faustino TUCKER 1 08/25/2019 03:39:00 PM EST - 06/25/2020 03:39:00 PM [facility] Immunizations Vaccine Date Status Description Data Source(s) COVID-19 VACCINE Pfizer 10/25/2020 12:00:00 AM EDT completed [facility] Vaccine Series Complete: NOThis Data was Submitted to [facility] Via [employer]. Medications No Information Insurance Providers Payer name Policy type / Coverage type Policy ID Covered alliance party ID Covered alliance party's relationship to marie Policy Marie Plan Information [facility] ACTIVE DUTY [id number] SP [id number] [facility] - O/P [id number] 18 [id number] [facility] [id number] 18 [id number] [facility] [place] [id number] 18 [id number] Problems, Conditions, and Diagnoses Code Display Name Description Problem Type Effective Dates Data Source(s) Y74301 Nicotine dependence, other tobacco produ ct, uncomplicated Nicotine dependence, other tobacco product, uncomplicated Diagnosis 03/14 08:15:00 AM EDT [facility] T78136 Migraine without aura, intractable, with out status migrainosus Migraine without aura, intractable, without status migrainosus Diagnosis 03/14/2021 08:15:00 AM EDT [facility] R519 Headache, unspecified Headache, unspecified Diagnosis 03/14/2021 08:15:00 AM EDT [facility] A17412 Nicotine dependence, cigarettes, uncompl icated Nicotine dependence, cigarettes, uncomplicated Diagnosis 11/12/2020 07:31:00 AM EDT [facility] N451 Epididymitis Epididymitis Diagnosis 11/12/2020 07:31:00 A M EDT [facility] P50321 Left testicular pain Left testicular pain Diagnosis 11/12/2020 07:31:00 AM EDT [facility] Surgeries/Procedures No Information Results ID Date Data Source [id number] 03/14/2021 08:15:00 AM EDT [facility] 1 OrderSheet [facility] Emergency Department [address] [place] [address] Phone #: ext- [phone] 03/14/2021 08:11 [id number] Sex[facility] M : 2000 Age: 20yWEIGHT:83.9 kg [...] mL 09:26 03/14/2021 09:59 Richar 2 OrderSheet [facility] Emergency Department [address] [place] [address] Phone #: ext- [phone] 03/14/2021 08:11 Patient: MATHEW NAVARRO Sex: M : 2000 Age: 20yBolus: : Bolus 1000 Karo Turcios RNmL (X1) ;GENERAL ORDERSOrder Description Priority Entered Acknowledged InitialedSaline Lock 09:26 03/14/2021 09:41 Karo Enciso RN ;[Electronically signed by Richar Yanez RN (19:33 03/14/2021)][Electronically signed by Karo Turcios (02:44 03/15/2021)][Electronically locked by Richar Yanez RN (:33 03/14/2021)] Name Value Range Interpretation Code Description Data Nori rce(s) Supporting Document(s) ID Date Data Source [id number] 03/14/2021 08:15:00 AM EDT [facility] 1 Medication Reconciliation Report [facility] Emergency Department [address] [place] [address] Phone #: ext- [phone] 03/14/2021 08:11 Patient: [...] 03/14/2021The following Medications were prescribed to the patient:Maxalt-RETAIL INTERIOR DESIGNER 10 mg disintegrating tablet Take 1 tablet twice a day for 7 days -- as needed for migraineheadache. Dispense 14 tablet. Refills: 0. Substitution permitted.Pharmacy - [facility] - [address] ; [place] [address]. FaxNumber: . -- Karo Turcios Name Value Range Interpretation Code Description Data Nori rce(s) Supporting Document(s) ID Date Data Source [id number] 03/14/2021 08:15:00 AM EDT [facility] 1 Medication Administration Record [facility] Emergency Department [address] [place] [address] Phone #: ext- [phone] 03/14/2021 08:11 Patient: MATHEW NAVARRO Sex: M : 2000 Age: 20yWeight: 83.9 kgHeight/Length: 69 inBMI: 27.3ALLERGIES: None Date/Time Medication Administered Medication OrderedStart REGLAN [IVPB] (METOCLOPRAMIDE Reglan IVPB 10 mg with Wzibiszr21:55 03/14/2021 HCL) Intravenous 50 mL (D5W)Richar Yanez RN Dose: 10 mg IVPB---- Rate: 100 mL/hr over 30 minute(s)Stop Dispensed: 50 mL bag10:35 03/14/2021 Site: #1 left Malcolm Yanez RNGiven IMITREX [SUBCUTANEOUS] Imitrex 6 mg Subcutaneous X109:50 03/14/2021 (SUMATRIPTAN SUCCINATE) dose: 6 mg (NOW x1)Richar Yanez RN Dose: 6 mg SubcutaneousStart NS [IV] NS IV 1000 mL Bolus: : Bolus 834773:59 03/14/2021 Dose: IV Fluids mL (X1)Richar Yanez RN Bolus: 1000 mL over 1 minute(s)---- Dispensed: 1000 mL bagStop Site: #1 left AC11:18 03/14/2021Richar Yanez RN Name Value Range Interpretation Code Description Data Nori rce(s) Supporting Document(s) ID Date Data Source [id number] 03/14/2021 08:15:00 AM EDT [facility] 1 General Instructions [facility] Emergency Department [address] [place] [address] Phone #: ext- [phone] 03/14/2021 08:11 Patient: MATHEW NAVARRO Sex: M : 2000 Age: 20yAcute migraine headache without aura- refractory to treatment. No status migrainosus.INSTRUCTIONSDo not work today.(the ct scan as well as MRI of the brain did not show any lesions or bleed in your brain. take themaxalt as prescribed for your headache. follow up with your PMD in 2 days).Your Current Medications: .No home medication.Prescription Medications:Maxalt-RETAIL INTERIOR DESIGNER 10 mg disintegrating tablet Take 1 tablet twice a day for 7 days -- as needed for migraineheadache. Dispense 14 tablet. Refills: 0. Substitution permitted.Pharmacy - [facility] [address] [address] ; [place] [address]. .Follow-up:Follow up with your healthcare provider in [...] or too much sleep. 2 General Instructions [facility] Emergency Department [address] [place] [address] Phone #: ext- [phone] 03/14/2021 08:11 Patient: [...] Avocados Bananas Figs Raisins 3 General Instructions [facility] Emergency Department [address] [place] [address] Phone #: ext- [phone] 03/14/2021 08:11 Patient: [...] healthcare provider Stiff neck 4 General Instructions [facility] Emergency Department [address] [place] [address] Phone #: ext- [phone] 03/14/2021 08:11 Patient: MATHEW NAVARRO Sex: M : 2000 Age: 20y Extreme drowsiness, confusion, or fainting Dizziness, or dizziness with spinning sensation (vertigo) Weakness or trouble feeling in an arm or leg, or on one side of your face Trouble talking or seeing [employer]. [address] [place] [address], [place] [address]. All rights reserved. This information is not [...] potential inaccurate false findings. 5 General Instructions [facility] Emergency Department [address] [place] [address] Phone #: ext- [phone] 03/14/2021 08:11 Patient: [...] headache you've ever had" 6 General Instructions [facility] Emergency Department [address] [place] [address] Phone #: ext- [phone] 03/14/2021 08:11 Patient: MATHEW NAVARRO Sex: M : 2000 Age: 20y New headaches in a woman [phone] [employer]. [address] [place] [address]. All rights reserved. This information is not intended as asubstitute for professional medical care. Always follow your healthcare professional's instructions. You have been given the following additional information: Headache, Migraine, Classic What Are Migraine and Tension Headaches? Do not work today.(Electronically signed by Karo Turcios 03/15/2021 02:44) Name Value Range Interpretation Code Description Data Nori rce(s) Supporting Document(s) ID Date Data Source [id number] 03/14/2021 08:15:00 AM EDT [facility] 1 Clinical Report - Nurses [facility] Emergency Department [address] [place] [address] Phone #: ext- [phone] 03/14/2021 08:11 Patient: [...] HEADACHE.Alert. No acute distress.This started 1 weeks.Treatment PEDIATRIC NEPHROLOGIST:None.SEPSIS SCREEN: SIRS SCREEN NEGATIVE. SEPSIS SCREEN NEGATIVE. No suspected or confirmedsigns of infection present. --09:23 03/14/21 Yanci Torre RN09:03/14/21. BP: 151/81. MAP: 104. HR: 59. RR: 16. O2 saturation: 100%. Temp: 97.3 F. Pain levelnow: 10. --09:23 03/14/21 Yanci Torre, JUVENTINO.Weight: 83.9 kg stated. Height/Length: 69 inches Per Patient. BMI: 27.3. --09:22 03/14/21 Yanci Torre RN.MedicationsNone. --09:03/14/21 Yanci Torre, JUVENTINO.AllergiesNone. --09:03/14/21 Yanci Torre, JUVENTINO.PROBLEMS:Epididymitis. --09:03/14/21 Yanci Torre, JUVENTINO.Medication/allergy information source: the patient and patient's previous visit record. --09:23 03/14/21Yanci Torre RN.ADDITIONAL SURGERIES:no known surgeries.HistoryPAST MEDICAL HX: Immunizations: (covid vaccine). 2 Clinical Report - Nurses [facility] Emergency Department [address] [place] [address] Phone #: ext- [phone] 03/14/2021 08:11 Patient: [...] and nontender.SKIN: Skin is warm and dry. --:03/14/21 Yanci Torre RN.NURSING PROGRESS NOTESPatient gowned. Reassurance given. Two patient identifiers checked. Bed placed in lowest position.Brakes of bed on. Patient ready for evaluation. --:03/14/21 Yanci Torre RN 09:50 03/14/2021 Site #1 [...] post-medication administration. 3 Clinical Report - Nurses [facility] Emergency Department [address] [place] [address] Phone #: ext- [phone] 03/14/2021 08:11 --- [...] 03/14/21 Richar Yanez RN Patient transported to [place] by wheelchair with mask and licensed chemical spray technician. (1050). --10:07 03/14/21 Richar Yanez RN 10:19 03/14/2021 [...] from CT by wheelchair with mask and licensed chemical spray technician. (1020). --12:40 03/14/21 Richar Yanez RN ( 1130 pt stating headache better, pt moved to hallway 3 to open up room 5 for another pt). --12:41 03/14/21 Richar Yanez RN Patient transported to MRI by wheelchair with mask and licensed chemical spray technician. (1250). Patient returned from MRI by wheelchair with mask. (1315). Not transported from licensed chemical spray technician. --13:22 03/14/21 Richar Yanez RN 10:00 03/14/21. [...] present. 4 Cl inical Report - Nurses [facility] Emergency Department [address] [place] [address] Phone #: ext [phone] 03/14/2021 08:11 Patient: MATHEW NAVARRO Sex: M : 2000 Age: 20y Discharge instructions provided and reviewed with the patient. Reviewed medication(s) side effects, precautions, dosing and course information. Prescription(s) sent electronically to pharmacy. Reviewed referrals. Provided to follow-up provider. Patient verbalized understanding. Written instructions provided in Chilean. The patient was discharged by the physician. He was discharged home. He left ambulatory and via private vehicle. Patient driving. --14:06 03/14/21 Richar Yanez RN.Locked/Released at 03/14/2021 19:33 by Richar Yanez RN Name Value Range Interpretation Code Description Data Nori rce(s) Supporting Document(s) ID Date Data Source [id number] 03/14/2021 08:15:00 AM EDT [facility] 1 Clinical Report - Physicians/Mid Levels [facility] Emergency Department [address] [place] [address] Phone #: ext [phone] 03/14/2021 08:11 Patient: MATHEW NAVARRO Sex: M [...] reviewed. 2 Clinical Report - Physicians/Mid Levels [facility] Emergency Department [address] [place] [address] Phone #: qiw- [phone] 03/14/2021 08:11 Patient: MATHEW NAVARRO Sex: M [...] CONTRAST 3 Clinical Report - Physicians/Mid Levels [facility] Emergency Department [address] [place] [address] Phone #: ext- [phone] 03/14/2021 08:11 Patient: MATHEW NAVARRO Sex: M : 2000 Age: 20yReason(s): persistent headacheTRANSPORTATION: WC IV? O2? Oxygen?(No) Room: ED Exam CT HEAD W/[place] [address] PHONE: [phone] FAX: [phone] Name .................. : MELANIE Lopes Acct Number.................. : [id number] ROOM. ................. : [place] MR Number ................... : [id number] Stay type ............. : E/R Discharge Date......... ... : Admit Date ......... : 03/14/21 Admit Phys .................... : [facility] Date of ....... : 2000 Family Phys ................... : UNKNOWN Phone .................. : [phone] Age ................................ : 20 Film# .................. .:[id number] Sex ................................. : M Unsigned transcriptions are preliminary reports and do not represent a medical or legal document CT HEAD W/O CONTRAST 50152 COMPLETE:03/14/21 10:48 DIMPLE 03536 Reason(s): persistent headache CT BRAIN WITHOUT IV [...] occult on CT. Page 1 of 2 [place] [address] PHONE: [phone] FAX: [phone] 4 Clinical Report - Physicians/Mid Levels [facility] Emergency Department [address] [place] [address] Phone #: ext- [phone] 03/14/2021 08:11 Patient: MATHEW NAVARRO Sex: M : 2000 Age: 20y Name .................. : MELANIE Lopes Acct Number.................. : [id number] ROOM. ................. : MR Number ................... : [id number] Stay type ............. : E/R Discharge Date......... ... : Admit Date ......... : 03/14/21 [facility] ....... ............. [facility] Date of ....... : 2000 Family Phys ................... : UNKNOWN Phone .................. : [phone] Age ................................ : 20 Film# .................. .:[id number] Sex ................................. : M Unsigned transcriptions are preliminary reports and do not represent a medical or legal document CT HEAD W/O CONTRAST 64221 COMPLETE:03/14/21 10:48 DIMPLE 13102 Reason(s): persistent headache Electronically Reviewed and Signed [...] may be occult on CT. will send [facility] for an MRI 13:32 03/14/21. MRI read [...] available; clinical impression 5 Clinical Report - Physicians/[facility] Emergency Department [address] [place] [address] Phone #: ext- [phone] 03/14/2021 08:11 Patient: MATHEW NAVARRO Sex: M [...] Medications: . No home medication. Prescription Medications: Maxalt-RETAIL INTERIOR DESIGNER 10 mg disintegrating tablet Take 1 tablet twice a day for 7 days -- as needed for migraine headache. Dispense 14 tablet. Refills: 0. Substitution permitted. Pharmacy - [facility] - [address] ; [place] [address]. . Follow-up: Follow up with your healthcare [...] rce(s) Supporting Document(s) ID Date Data Source [id number] 03/14/2021 10:52:00 [place] [address] PHONE: [phone] FAX: [phone] Name .................. : MELANIE Lopes Acct Number.................. : [id number] ROOM. ................. : VT-02 MR Number ................... : [id number] Stay type ............. : E/R Discharge Date......... ... : Admit Date ......... : 03/14/21 Admit Phys .................... : VIRGEN Date of ....... : 2000 Family Phys ................... : UNKNOWN Phone .................. : [phone] Age ................................ : 20 Film# .................. .:[id number] Sex ................................. : M Unsigned transcriptions are preliminary reports and do not represent a medical or legal document MRI BRAIN W/O CONTRAST 69685 COMPLETE:03/14/21 11:42 79635 Reason(s): Asymmetrically larger left lateral ventricular system [...] Normal mastoid aeration. Page 1 of 2 [place] [address] PHONE: [phone] FAX: [phone] Name .................. : BRUCEVANDANA MATHEW Moses Acct Number.................. : [id number] ROOM. ................. : [place]- 02 Number ................... : [id number] Stay type ............. : E/R Discharge Date......... ... : Admit Date ......... : 03/14/21 Admit Phys .................... : VIRGEN Date of ....... : 2000 Family Phys ................... : UNKNOWN Phone .................. : [phone] Age ................................ : 20 Film# .................. .:[id number] Sex ..................... ............ : M Unsigned transcriptions are preliminary reports and do not represent a medical or legal document MRI BRAIN W/O CONTRAST 79876 COMPLETE:03/14/21 11:42 60904 Reason(s): Asymmetrically larger left lateral ventricular system with subtl IMPRESSION: No acute abnormality. No abnormal white matter signal to correspond with migraine history or other demyelinating process. Ventricular asymmetry considered to represent normal variation. Mild ethmoid mucosal thickening without fluid levels may represent chronic sinusitis. Electronically Reviewed and Signed By Goran So MD , 03/14/21 22:52, [facility] Transcribe Initials: SSR, Transcribe Date: 03/14/21 13:42, Dictation Date: Copy for: EMERGENCY DEPT via mode Copy for: 710 MED REC DISCHARGED Page 2 of 2 Name Value Range Interpretation Code Description Data Nori rce(s) Supporting Document(s) ID Date Data Source [id number] 03/14/2021 10:49:00 [place] [address] PHONE: [phone] FAX: [phone] Name .................. : MELANIE Lopes Acct Number.................. : [id number] ROOM. ................. : MR Number ................... : [id number] Stay type ............. : E/R Discharge Date......... ... : Admit Date ......... : 02/27 01/17 Admit Phys .................... : LINSEYMELVIN Date of ....... : 2000 Family Phys ................... : UNKNOWN Phone .................. : [phone] Age ................................ : 20 Film# .................. .:[id number] Sex ................................. : M Unsigned transcriptions are preliminary reports and do not represent a medical or legal document CT HEAD W/O CONTRAST 29996 COMPLETE:03/14/21 10:48 DIMPLE 01473 Reason(s): persistent headache CT BRAIN WITHOUT IV [...] occult on CT. Page 1 of 2 [facility] [address] [place] [address] PHONE: [phone] FAX: [phone] Name .................. : MELANIE Lopes Acct Number.................. : [id number] ROOM. ................. : [place]- Number ................... : [id number] Stay type ............. : E/R Discharge Date......... ... : Admit Date ......... : 03/14/21 Admit Phys .................... : [facility] Date of ....... : 2000 Family Phys ................... : UNKNOWN Phone .................. : [phone] Age ................................ : 20 Film# .................. .:[id number] Sex ................................. : M Unsigned transcriptions are preliminary reports and do not represent a medical or legal document CT HEAD W/O CONTRAST 30223 COMPLETE:03/14/21 10:48 DIMPLE 58415 Reason(s): persistent headache Electronically Reviewed and Signed By Goran So MD , 03/14/21 22:49, [facility] Transcribe Initials: SSR, Transcribe Date: 03/14/21 10:55, Dictation Date: Copy for: EMERGENCY DEPT via [facility] Copy for: 710 MED REC DISCHARGED Page 2 of 2 Name Value Range Interpretation Code Description Data Nori rce(s) Supporting Document(s) ID Date Data Source [id number] 12/17/2020 09:02:00 AM EDT [facility] ([facility]) Name Value Range Interpretation Code Description Data [facility] rce(s) Supporting Document(s) Color of Urine Laboratory test result [facility] ([facility]) Appearance of Urine Laboratory test result [facility] ([facility]) Spec [place] 1.005 1.001-1.030 [facility] ([facility]) pH of Urine by Test strip 8 5-9 MED[facility] NT ([facility]) Leukocytes Laboratory test result [facility] ([facility]) Nitrate [Presence] in Urine Laboratory test result [facility] ([facility]) Protein [Presence] in Urine by Test strip Laboratory test result [facility] ([facility]) Inhouse Glucose Laboratory test result [facility] ([facility]) Ketones [Presence] in Urine by Test strip Laboratory test result [facility] ([facility]) Urobilinogen Laboratory test result [facility] ([facility]) Bilirubin.total [Presence] in Urine by Test strip Laboratory test res ult [facility] ([facility]) Blood type and Indirect antibody screen panel - Blood Laboratory test result [facility] ([facility]) ID Date Data Source [id number] 11/15/2020 11:28:00 AM EDT [facility] [address] [place] [address] PHONE: [phone] FAX: [phone] Name .................. : MAURISIOFERMÍN MATHEW Moses Acct Number.................. : [id number] ROOM. ................. : [place]- Number ................... : [id number] Stay type ............. : E/R Discharge Date......... ... : 11/12/20 Admit Date ......... : 11/12/20 Admit Phys .................... : VIRGEN Date of ....... : 2000 Family Phys ................... : UNKNOWN Phone .................. : [phone] Age ................................ : 20 Film# .................. .:[id number] Sex ................................. : M Unsigned transcriptions are preliminary reports and do not represent a medical or legal document SCROTAL [id number] COMPLETE:11/12/20 08:42 KNB 8917 Reason(s): pain on [...] By JEFF ARORA MD , 11/15/20 11:28, [facility] Transcribe Initials: PADMINI , Transcribe Date: 11/12/20 15:59, Dictation Date: Copy for: EMERGENCY DEPT via [facility] Copy for: 710 MED REC DISCHARGED Page 1 of 1 Name Value Range Interpretation Code Description Data Nori rce(s) Supporting Document(s) ID Date Data Source [id number] 11/12/2020 07:31:00 AM EDT [facility] 1 OrderSheet [facility] Emergency Department [address] [place] [address] Phone #: [phone] vti- [phone] 11/12/2020 07:27 Patient: MATHEW NAVARRO Sex: M [...] TurciosNAndres ;Chlamydia/GC STAT 08:54 11/12/2020 08:54 Maria Isabel Nicolas Jessica R.N.; Madeline Mckenzie Verbal order per; Karo TurciosDIAGNOSTIC STUDY ORDERSOrder Description Priority Entered Acknowledged InitialedUS Scrotal STAT 07:39 11/12/2020 08:02 Maria Isabel,(Oxygen?(No)) Karo Turcios R.N. ; Reason for Study: pain on the left testicleMEDICATION/IV/DRIP/FLUID ORDERSOrder Description Priority Entered Acknowledged InitialedRocephin IM 250 08:58 11/12/2020 09:06 Dannie Johnson (NOW) Karo Turcios R.N. ;Zithromax Liquid 08:58 11/12/2020 Cancelled: Physician Order 09:06 JUMA Johnson 1000 mg (NOW) Karo Turcios R.N. 2 OrderSheet [facility] Emergency Department [address] [place] [address] Phone #: ext- [phone] 11/12/2020 07:27 Patient: MATHEW NAVARRO Sex: M : 2000 Age: 20y ;Zithromax PO 1000 09:07 11/12/2020 09:07 Dannie Johnson (NOW x1) Augustina Johnson R.N.; R.NAndres Verbal order per; Karo TurciosGENERAL ORDERSOrder Description Priority Entered Acknowledged Initialed[Electronically signed by Madeline Nicolas R.N. (09:19 11/12/2020)][Electronically signed by Karo Turcios (10:00 11/12/2020)][Electronically locked by Madeline Nicolas R.N. (09:19 11/12/2020)] Name Value Range Interpretation Code Description Data Nori rce(s) Supporting Document(s) ID Date Data Source [id number] 11/12/2020 07:31:00 AM EDT [facility] 1 Medication Reconciliation Report [facility] Emergency Department [address] [place] [address] Phone #: ext- [phone] 11/12/2020 07:27 Patient: [...] Dispense 10 tablet. Refills: 0.Substitution permitted.Pharmacy - [address] ; [place] [address]. FaxNumber: . -- Karo Turcios Name Value Range Interpretation Code Description Data Nori rce(s) Supporting Document(s) ID Date Data Source [id number] 11/12/2020 07:31:00 AM EDT [facility] 1 Medication Administration Record [facility] Emergency Department [address] [place] [address] Phone #: ext- [phone] 11/12/2020 07:27 Patient: MATHEW NAVARRO Sex: M : 2000 Age: 20yWeight: 90.4 kgHeight/Length: 69 inBMI: 29.5ALLERGIES: None Date/Time Medication Administered Medication OrderedGiven ROCEPHIN [IM] (CEFTRIAXONE Rocephin IM 250 mg (NOW)09:11/12/2020 SODIUM)Augustina Johnson R.N. Dose: 250 mg IMGiven ZITHROMAX [PO] (AZITHROMYCIN) Zithromax PO 1000 mg (NOW x1)09:07 11/12/2020 Dose: 1000 mg Tablets Augustina Webber R.N. Name Value Range Interpretation Code Description Data Nori rce(s) Supporting Document(s) ID Date Data Source [id number] 11/12/2020 07:31:00 AM EDT [facility] 1 General Instructions [facility] Emergency Department [address] [place] [address] Phone #: ext- [phone] 11/12/2020 07:27 Patient: MATHEW NAVARRO Sex: M [...] tablet. Refills: 0.Substitution permitted.Pharmacy - [facility] [id number] [facility] ; [place] [address]. .Follow-up:Follow up with your healthcare provider Sunday. Reason for referral: evaluation. Summary of careprovided to patient via paper. Follow up with a urologist- as recommended by your health care provider-Sunday. Reason for referral: evaluation.Follow-up with: Shahbaz Muniz M.D., Urology, , [address] [place] [address], [phone] Follow up Sunday. Call for the next [...] tract(not an STI infection). 2 General Instructions [facility] Emergency Department [address] [place] [address] Phone #: ext- [phone] 11/12/2020 07:27 Patient: MATHEW NAVARRO Sex: M [...] pain medicine as directed. You may use sqea-lgk-txymvor medicines to control pain, unless another medicine [...] whole-grain cereals. If needed, use a mild xvqx-[id number] laxative for constipation. Mineral oil can be [...] on the correct antibiotic. 3 General Instructions [facility] Emergency Department [address] [place] [address] Phone #: ext- [phone] 11/12/2020 07:27 Patient: [...] Unable to pass urine for 8 hours [id number] [employer]. [address] [place] [address], [place] [address]. All rights reserved. This information is not intended as asubstitute for professional medical care. Always follow your healthcare professional's instructions. You have been given the following additional information: Epididymitis Do not work for four.(Electronically signed by Karo Turcios 11/12/2020 10:00) Name Value Range Interpretation Code Description Data Nori rce(s) Supporting Document(s) ID Date Data Source [id number] 11/12/2020 07:31:00 AM EDT [facility] 1 Clinical Report - Nurses [facility] Emergency Department [address] [place] [address] Phone #: ext- [phone] 11/12/2020 07:27 Patient: MATHEW NAVARRO Sex: M : 2000 Age: 20yTRIAGEArrived by private vehicle. Historian: patient. Accompanied by friend.Acuity: LEVEL 3.Chief Complaint: TESTICULAR PAIN and (left sided).Alert.Onset. (2 days ago).Treatment PEDIATRIC NEPHROLOGIST:None.SEPSIS SCREEN: SIRS SCREEN NEGATIVE. SEPSIS SCREEN NEGATIVE. [...] of CRE. 2 Clinical Report - Nurses [facility] Emergency Department [address] [place] [address] Phone #: ext- [phone] 11/12/2020 07:27 -- [...] assessment completed. No skin integrity risk identified. --:11/12/20 Augustina Johnson R.N. Interventions Identification band on patient. To treatment room. --:11/12/20 Augustina Johnson R.N.PHYSICAL ASSESSMENTAmbulatory to room. Patient gowned.GENERAL / [...] is warm and dry. --07:55 11/12/20 Madeline Nicolas R.N.NURSING PROGRESS NOTESPatient gowned. Reassurance given. Two patient identifiers checked. Call light placed in reach. Siderails up x 2. Bed placed in lowest position. Brakes of bed on. Patient ready for evaluation. --07: Augustina Johnson R.N. Patient transported by wheelchair with mask and licensed chemical spray technician. (Ultrasound). --08:03 11/12/20 Madeline Nicolas R.N. 08:14 11/12/20. Patient returned by wheelchair with mask and licensed chemical spray technician. (Ultrasound). --08:17 3 Clinical Report - Nurses [facility] Emergency Department [address] [place] [address] Phone #: ext- [phone] 11/12/2020 07:27 Patient: [...] Patient verbalized understanding. Written instructions provided in Chilean. --09:18 11/12/20 Madeline Nicolas R.N. Departure time: 09:18 11/12/2020. --09:18 11/12/20 Madeline Nicolas R.N. 09:18 11/12/20. BP: 139/74. MAP: 95. HR: 71. RR: 71. O2 saturation: 99%. Temp: 97.4 F. Pain level now: 10/06. --09:19 11/12/20 Madeline Nicolas R.N.Locked/Released at 11/12/2020 09:19 by Madeline Nicolas R.N. Name Value Range Interpretation Code Description Data Nori rce(s) Supporting Document(s) ID Date Data Source [id number] 11/12/2020 07:31:00 AM EDT [facility] 1 Clinical Report - Physicians/Mid Levels [facility] Emergency Department [address] [place] [address] Phone #: ext- [phone] 11/12/2020 07:27 Patient: MATHEW NAVARRO [facility]#: [id number] Sex: M : 2000 Age: 20y Time [...] EXAM 2 Clinical Report - Physicians/Mid Levels [facility] Emergency Department [address] [place] [address] Phone #: ext- [phone] 11/12/2020 07:27 Patient: MATHEW NAVARRO Sex: M : 2000 Age: 20y Vital [...] hydrocele. Jefe mayberry Kirwin - 11/12/2020 8:29:11 AMnad. The study was interpreted by the radiologist.Laboratory [...] INDICATED 3 Clinical Report - Physicians/Mid Levels [facility] Emergency Department [address] [place] [address] Phone #: ext- [phone] 11/12/2020 07:27 Patient: MATHEW NAVARRO Sex: M [...] Male GFR Interprentation 20-49 yrs >60 mL/min Pvemuu64-57 yrs >56 mL/min Normal 60-69 yrs >49 mL/min Normal 70-79yrs>42 mL/min Normal 80 and above >35 mL/min Normal Female GFRInterpretation 20-39 yrs >60 mL/min Normal 40-49 yrs >58 mL/minNormal 50-59 yrs >51 mL/min Normal 60-69 yrs >45 mL/min Crunbp46-12 yrs >39 mL/min Normal 80 and above >32 mL/min NormalPT/INR: (YEVGENIY: 11/12/2020 07:45) ( MsgRcvd 11/12/2020 08:12) Final results Test Result Flag Units (Reference) PROTIME 13.4 SECONDS (11.0 - 15.5) INR 0.97 (0.93 - 1.23) \\BLDo\\INR INTERPRETATION\\BLDx\\ Therapeutic range for Coumadin andrelated oral anticoagulants. - International Normalized Ratio (INR): 2.0 - 3.0 for VenousThrombosis, Pulmonary Embolus, Tissue heart valves, Acute SC, Atrial Fibrillation, Valvular heartdisease and recurrent Systemic Embolism. - International Normalized Ratio (INR): 2.5 - 3.5for Mechanical Prosthetic valve.Urinalysis: (YEVGENIY: 11/12/2020 08:25) ( MsgRcvd 11/12/2020 08:42) Final results Test Result Flag Units (Reference) URINALYSIS URINALYSIS SOURCE R COLOR yellow (NORMAL: Yello CLARITY clear (NORMAL: Clear SPEC GRAVITY 1.010 (1.001 - 1.030 pH 6 (5 - 9) GLUCOSE NORM (NORMAL: Negat BILIRUBIN NEG (NORMAL: Negat KETONE NEG (NORMAL: Negat 4 Clinical Report - Physicians/Mid Levels [facility] Emergency Department [address] [place] [address] Phone #: ext- [phone] 11/12/2020 07:27 Patient: MATHEW NAVARRO Sex: M : 2000 Age: 20y PROTEIN NEG (NORMAL: Negat NITRITE NEG (NORMAL: Negat BLOOD NEG (NORMAL: Negat LEUK EST NEG (NORMAL: Negat UROBILINOGEN NOR (less than 1.0 MICROSCOPIC Not Indicate US Scrotal: (YEVGENIY: 11/12/2020 07:39) ( MsgRcvd 11/12/2020 08:42) In Progress US SCROTAL Reason(s): [...] medication. 5 Clinical Report - Physicians/Mid Levels [facility] Emergency Department [address] [place] [address] Phone #: ext- [phone] 11/12/2020 07:27 Patient: MATHEW NAVARRO Sex: M : 2000 Age: 20y Prescription Medications: levofloxacin 500 mg tablet Take 1 tablet once a day for 10 days -- Dispense 10 tablet. Refills: 0. Substitution permitted. Pharmacy - [facility] - [id number] [facility] ; [place] [address]. . Follow-up: Follow up with your healthcare provider Sunday. Reason for referral: evaluation. Summary of care provided to patient via paper. Follow up with a urologist- as recommended by your health care provider- Sunday. Reason for referral: evaluation. Follow-up with: Shahbaz Muniz M.D., Urology, , [address] [place] [address], [phone] Follow up Sunday. Call for the next available appointment. Reason for referral: evaluation. Summary of care provided to patient via paper.(Electronically signed by Karo Turcios 11/12/2020 10:00) Name Value Range Interpretation Code Description Data Nori rce(s) Supporting Document(s) ID Date Data Source [id number] 11/12/2020 07:31:00 AM EDT [facility] for MATHEW NAVARRO VisitID: [id number] Date: 9:59vital sign for respiratory rate were inputted incorrectly as 71 they should of been 17(Electronically signed by Augustina Johnson R.N. - 11/12/2020 9:59) Name Value Range Interpretation Code Description Data Nori rce(s) Supporting Document(s) ID Date Data Source [id number] 11/14/2020 07:12:00 AM EDT [facility] Name Value Range Interpretation Code Description Data Nori rce(s) Supporting Document(s) Chlamydia trachomatis rRNA [Presence] in Unspecified specimen by Probe and target amplification method Negative Negative [facility] Neisseria gonorrhoeae rRNA [Presence] in Unspecified specimen by Probe and target amplification method Negative Negative [facility] ID Date Data Source [id number] 11/12/2020 08:41:00 AM EDT [facility] Name Value Range Interpretation Code Description Data Nori rce(s) Supporting Document(s) URINALYSIS [facility] yellow NORMAL: Yellow [facility] ospital CLARITY clear NORMAL: Clear [facility] spital Specific gravity of Urine by Test strip 1.010 1.001 - 1.030 [facility] pH 6 5 - 9 [facility] Glucose [Mass/volume] in Urine by Test strip NORM NORMAL: Negat estella [facility] Bilirubin.total [Presence] in Urine by Test strip NEG NORMAL: Negative [facility] Ketones [Presence] in Urine by Test strip NEG NORMAL: Negative [facility] Protein [Mass/volume] in Urine by Test strip NEG NORMAL: Negat [facility] Nitrite [Presence] in Urine by Test strip NEG NORMAL: Negative [facility] BLOOD NEG NORMAL: Negative [facility] Leukocyte esterase [Presence] in Urine by Test strip NEG BERNY L: Negative [facility] Urobilinogen [Mass/volume] in Urine by Test strip NOR less briseida n 1.0 mg/dL [facility] MICROSCOPIC Not Indicate [facility] ospital ID Date Data Source [id number] 11/12/2020 08:21:00 AM EDT [facility] Name Value Range Interpretation Code Description Data Nori rce(s) Supporting Document(s) COMPREHENSIVE METABOLIC PANEL [facility] COMPREHENSIVE METABOLIC PANEL Sodium [Moles/volume] in Serum or Plasma 137 mEq/L 134 - 153 [facility] Potassium [Moles/volume] in Serum or Plasma 4.1 mEq/L 3.6 - 5.0 [facility] Chloride [Moles/volume] in Serum or Plasma 102 mEq/L 98 - 107 [facility] Carbon dioxide, total [Moles/volume] in Serum or Plasma 26 MEQ/L 22 - 30 [facility] Glucose [Mass/volume] in Serum or Plasma 89 MG/DL 70 - 99 [facility] BUN 14 MG/DL 7 - 21 [facility] Creatinine [Mass/volume] in Serum or Plasma 0.9 MG/DL 0.7 - 1.5 [facility] BUN/CREAT 16 8 - 27 [facility] Protein [Mass/volume] in Serum or Plasma 7.3 G/DL 6.3 - 8.2 [facility] Albumin [Mass/volume] in Serum or Plasma 4.4 G/DL 3.9 - 5.0 [facility] Globulin [Mass/volume] in Serum by calculation 2.9 GM/DL 2.4 - 3.2 [facility] A/G RATIO 1.5 0.8 - 2.0 [facility] Calcium [Mass/volume] in Serum or Plasma 9.4 MG/DL 8.4 - 10.2 [facility] Bilirubin.total [Mass/volume] in Serum or Plasma <0.7 MG/DL 0.2 - 1.3 [facility] Alkaline phosphatase [Enzymatic activity/volume] in Serum or Plasma 32 U/L 38 - 126 L [facility] Aspartate aminotransferase [Enzymatic activity/volume] in Serum or Plasma 17 U/L 5 - 40 [facility] Alanine aminotransferase [Enzymatic activity/volume] in Seru m or Plasma 13 U/L 7 - 56 [facility] Anion gap 3 in Serum or Plasma 9.0 mmol/L 8.0 - 16.0 [facility] AGE 20 yrs [facility] al NON-AA GFR >60 mL/min [facility] ital AFR AMER GFR >60 mL/min [facility] sp[facility] Male GFR In terprentation 20-49 [...] >32 mL/min Normal ID Date Data Source [id number] 11/12/2020 08:12:00 AM EDT [facility] Name Value Range Interpretation Code Description Data Nori rce(s) Supporting Document(s) Prothrombin time (PT) 13.4 SECONDS 11.0 - 15.5 [facility] INR in Platelet poor plasma by Coagulation assay 0.97 0.93 - 1. 23 [facility] \\BLDo\\INR INTERPRETATION\\BLDx\\ Therapeutic range for Coumadin and related oral anticoagulants. - International Normalized Ratio (INR): 2.0 - 3.0 for Venous Thrombosis, Pulmonary Embolus, Tissue heart valves, Acute SC, Atrial Fibrillation, Valvular heart disease and recurrent Systemic Embolism. -International Normalized Ratio (INR): 2.5 - 3.5 for Mechanical Prosthetic valve. ID Date Data Source [id number] 11/12/2020 08:04:00 AM EDT [facility] Name Value Range Interpretation Code Description Data Nori rce(s) Supporting Document(s) CBC W/AUTOMATED DIFF [facility] COMPLETE BLOOD COUNT Leukocytes [#/volume] in Blood by Automated count 8.7 10^3/uL 4.2 - 1 1.0 [facility] Erythrocytes [#/volume] in Blood by Automated count 5.15 10^6/uL 4. 50 - 6.30 [facility] Hemoglobin [Mass/volume] in Blood 15.4 g/dL 14.0 - 16.0 [facility] Hematocrit [Volume Fraction] of Blood by Automated count 45.8 % 4 1.0 - 51.0 [facility] Erythrocyte mean corpuscular volume [Entitic volume] by Auto mated count 88.9 fL 80.0 - 94.0 [facility] Erythrocyte mean corpuscular hemoglobin [Entitic mass] by Automated count 29.9 pg 27.0 - 34.0 [facility] Erythrocyte mean corpuscular hemoglobin concentration [Mass/volume] by Automated count 33.6 g/dL 31.0 - 36.0 [facility] Erythrocyte distribution width [Ratio] by Automated count 12.5 % 11.5 - 14.8 [facility] Platelets [#/volume] in Blood by Automated count 271 10^3/uL 150 - 45 0 [facility] Platelet mean volume [Entitic volume] in Blood by Automated count 9.3 fL 7.4 - 10.4 [facility] Neutrophils/100 leukocytes in Blood by Automated count 60.1 % 37. 0 - 80.0 [facility] Lymphocytes/100 leukocytes in Blood by Manual count 26.9 % 25.0 - 40.0 [facility] Monocytes/100 leukocytes in Blood by Automated count 8.9 % 3.0 - 8.0 H [facility] Eosinophils/100 leukocytes in Blood by Automated count 3.2 % 0.0 - 7.0 [facility] Basophils/100 leukocytes in Blood by Automated count 0.6 % 0.0 - 2.0 [facility] %IG 0.3 % 0.0 - 0.0 H [facility] al %NRBC 0.0 % 0.0 - 0.0 [facility] al Neutrophils [#/volume] in Blood by Automated count 5.25 10^3/uL 2.00 - 6.90 [facility] Lymphocytes [#/volume] in Blood by Automated count 2.35 10^3/uL 0.60 - 3.40 [facility] Monocytes [#/volume] in Blood by Automated count 0.78 10^3/uL 0.00 - 0.90 [facility] Eosinophils [#/volume] in Blood by Automated count 0.28 10^3/uL 0.00 - 0.70 [facility] Basophils [#/volume] in Blood by Automated count 0.05 10^3/uL 0.00 - 0.20 [facility] #IG 0.03 10^3/uL 0.00 - 0.10 [facility] ospital #NRBC 0.00 10^3/uL 0.00 - 0.00 [facility] ospital MANUAL DIFF NOT INDICATED [facility] RBC MORPH NOT INDICATED [facility] spital ID Date Data Source [id number] 06/25/2020 03:49:00 PM EST [facility] Name Value Range Interpretation Code Description Data Nori e(s) Supporting Document(s) SARS coronavirus 2 RNA [facility] This lab was ordered by [facility] spital and reported by [facility]. ID Date Data Source [id number] 06/27/2020 06:16:00 PM EST [facility] Name Value Range Interpretation Code Description Data Nori rce(s) Supporting Document(s) SARS-CoV-2, BEST Not Detected Not Detected [facility] This nucleic acid amplification test was developed and its performancecharacteristics determined by [facility]. Nucleic acidamplification tests include PCR and [...] pressure 127 mm[Hg] 127 mm[Hg] [facility] ([facility]) Diastolic blood pressure 79 mm[Hg] 79 mm[Hg] [facility] Heart rate 74 /min 74 /min [facility] ([facility]) Body mass index (BMI) [Ratio] 27.3 kg/m2 27.3 k g/m2 [facility] ([facility]) Body height 69 [in_i] 69 [in_i] [facility] ([facility]) 5'9" Body surface area Derived from formula 2.00 m2 2.00 m2 [facility] ([facility]) Oxygen saturation in Arterial blood by Pulse oximetry 97 % 97 % [facility] ([facility]) Body weight 185.00 [lb_av] 185.00 [lb_av] [facility] ([facility]) Body weight 83.916 kg 83.916 kg [facility] ([facility]) Heart rate 107 /min 107 /min [facility] ([facility]) Body temperature 98.7 [degF] 98.7 [degF] [facility] ([facility]) Oxygen saturation in Arterial blood by Pulse oximetry 98 % 98 % [facility] ([facility])
[2021-06-23] MEDS ORDERED: LORazepam 2 MG TAB PO STA (11:01)
[2021-06-23] MEDS ORDERED: NICOTINE 21MG/24HR 1 EA TRANSDERMAL TD ONE (11:05)
[2021-06-23 17:41] LABS: RSV AMPLIFICATION NEGATIVE (NEGATIVE)
[2021-06-23] MEDS ORDERED: MAXA10TA15 PO (20:12)
--- NOTE | 2021-06-23 20:51 | ECGEPIP ---
[facility] - ED Test Date: 2021-06-23 Pat Name: MATHEW NAVARRO Department: Room: - Gender: Male Manager Pet: GUMARO : 2000 Requested By: Lynda Mott Order Number: [id number] Reading MD: Natan Rene Measurements Intervals [place] Rate: 65 P: 62 AK: 146 QRS: 65 QRSD: 92 T: 30 QT: 380 QTc: 395 Interpretive Statements Normal sinus rhythm with sinus arrhythmia Early repolarization SIMILAR TO 05/25/21 Electronically Signed on 06-23-2021 20:51:31 EST by Natan Rene
[2021-06-24 01:34] VITALS: BP 136/83
== END 2021-06-24 01:34 ==
LOC: M ED 23:40
DX: R45.851 Suicidal ideations (principal)

== ENCOUNTER → 2021-10-19 | Outpatient (CLI) | payer OTHER ==
[~2021-10-19] MED LIST changes: +MAXA10TA15 PO
== END ==
LOC: M CARPUL 14:00
DX: R06.02 Shortness of breath (principal)

== ENCOUNTER 2024-11-14 08:16 | Day surgery (SDC) | payer OTHER ==
[~2024-11-14] VITALS: Ht 175.3 cm; Wt 99.8 kg
[~2024-11-14 08:16] MED LIST changes: +DESV100T3 PO; -MAXA10TA15 PO; +METH-1164 PO; +RIZA10TA66 PO; +TOPI25CA5 PO; +VITA100093 PO; +VITATAB73 PO
[2024-11-14] MEDS ORDERED: LIDOCAINE 1% SDV 5ML VIAL SC PRN (09:05)
[2024-11-14] MEDS ORDERED: LR 1,000 ML IV SCH ×3 (09:05→12:45)
[2024-11-14] MEDS ORDERED: MIDAZOLAM INJ 2MG/2ML VIAL As Ordered ONE (10:08)
[2024-11-14] MEDS ORDERED: propofoL 200 MG/20 ML VIAL As Ordered ONE (10:08)
[2024-11-14] MEDS ORDERED: fentaNYL 100 MCG/2 ML INJECTION As Ordered ONE (10:08)
[2024-11-14] MEDS ORDERED: ROCURONIUM BROMIDE 50MG/5ML VIAL As Ordered ONE (10:08)
[2024-11-14] MEDS ORDERED: ACETAMINOPHEN 1000MG/100ML IV BAG As Ordered ONE (10:09)
[2024-11-14] MEDS ORDERED: SUGAMMADEX SODIUM 500 MG/5 ML VIAL (BRIDION) As Ordered ONE (10:09)
[2024-11-14] MEDS ORDERED: ONDANSETRON 4MG 2ML VIAL As Ordered ONE (10:09)
[2024-11-14] MEDS ORDERED: LIDOCAINE 2% 100MG/5ML SDV (FOR ANES.) As Ordered ONE (10:09)
[2024-11-14] MEDS ORDERED: dexmedeTOMIDine (4MCG/ML)200MCG/50ML BTL (PRECEDEX) As Ordered ONE (10:09)
[2024-11-14] MEDS ORDERED: METHYLENE BLUE 0.5% (5MG/ML) 10 ML AMP (PROVAYBLUE) As Ordered ONE (10:37)
[2024-11-14] MEDS ORDERED: OXYMETAZOLINE 0.05% NASAL SPRAY As Ordered ONE (10:37)
[2024-11-14] MEDS ORDERED: HYDROmorphone HCL 2MG/ML 1ML VIAL As Ordered ONE (11:18)
[2024-11-14] MEDS ORDERED: oxyCODONE 5MG TAB PO PRN (11:35)
[2024-11-14] MEDS ORDERED: fentaNYL 100 MCG/2 ML INJECTION IV PRN (11:35)
[2024-11-14] MEDS ORDERED: HYDROMORPHONE HCL 0.5 MG/ 0.5 ML SYRINGE IV PRN (11:35)
[2024-11-14] MEDS ORDERED: ONDANSETRON 4MG 2ML VIAL IV PRN (11:35)
[2024-11-14 13:00] VITALS: BP 137/85; TEMP 97.3; O2SAT 95
== END 2024-11-14 13:08 | disposition home or self-care (01) ==
LOC: M SDC 08:16
PROVIDERS: ATTEND Otolaryngology
DX: J35.01 Chronic tonsillitis (principal); J35.8 Other chronic diseases of tonsils and adenoids; J45.909 Unspecified asthma, uncomplicated; K21.9 Gastro-esophageal reflux disease without esophagitis; G43.909 Migraine, unspecified, not intractable, without status migrainosus; G47.30 Sleep apnea, unspecified; Z79.899 Other long term (current) drug therapy
CPT/HCPCS: 42826; 88302; J0131; J1100; J1171; J2250; J2405; J3010